=== PATIENT | male | born 1985 | race Caucasian/White ===

== ENCOUNTER 2019-12-15 14:16 | Outpatient (CLI) | payer OTHER, SELFPAY ==
--- NOTE | 2019-12-15 14:19 | DI.RAD_ITS ---
EXAM: XR KNEE RT 3V AP,LAT,BALWINDER INDICATION: RIGHT KNEE PAIN FOLLOWING INJURY. COMPARISON: No exams were available for comparison TECHNIQUE: 2D digital imaging was performed. FINDINGS: There is a small declivity of the medial femoral condyle, which could represent an osteochondral defe ct. There is mild spurring at the tibial spines and femoral intracondylar notch as well as patella. No joint effusion is visible. IMPRESSION: Question of a small osteochondral defect of the medial femoral condyle of indeterminate age. DATA REPOSITORY: RADIATION DOSE DELIVERED:
== END 2019-12-15 14:36 ==
PROVIDERS: PCP Family Medicine; Visit Provider Physician Assistant
DX: M25.561 Pain in right knee (principal)
CPT/HCPCS: 73562

== ENCOUNTER 2019-12-30 01:51 | Outpatient (CLI) | payer OTHER, SELFPAY ==
--- NOTE | 2019-12-30 08:45 | DI.MRI_ITS ---
EXAM: MR LOWER JOINT RT WO CLINICAL HISTORY: right knee pain; laxity, M25.561,swelling TECHNIQUE: Multiplanar multisequence MRI was performed. COMPARISON: 12/15/2019 FINDINGS: BONES: Hyperintense signal on the T2 weighted images in the subchondral bone of the medial femoral co ndyle. JOINTS: Hyperintense signal within the articular cartilage overlying the medial femoral condyle. Sma ll joint effusion. Tiny popliteal cyst. TENDONS: Extensor mechanism: Unremarkable. Medial retinaculum: Unremarkable. Lateral retinaculum: Unremarkable. Popliteus: Unremarkable. MUSCLES: Unremarkable. MENISCI: Degenerative signal seen in the posterior horn of the medial meniscus no tear is identified. The lateral meniscus is unremarkable. SOFT TISSUES: Unremarkable. LIGAMENTS: Anterior Cruciate: The anterior cruciate ligament appears thinned centrally suspicious for a partial tear. Posterior Cruciate: Unremarkable. Medial Collateral:Unremarkable. Lateral Collateral: Unremarkable. OTHER: IMPRESSION: 1. Findings suspicious for a partial tear of the anterior cruciate ligament. 2. Osteochondral injury involving the medial femoral condyle. 3. No evidence of a meniscal tear. DATA REPOSITORY:
== END 2019-12-30 02:11 ==
PROVIDERS: PCP Family Medicine; Visit Provider Student in an Organized Health Care Education/Training Program
DX: M25.561 Pain in right knee (principal); M23.92 Unspecified internal derangement of left knee
CPT/HCPCS: 73721

== ENCOUNTER 2020-02-09 08:30 | Outpatient (CLI) | payer OTHER, SELFPAY ==
[2020-02-09 19:27] LABS: COVID-19 RT-PCR UVMMC Result Negative (Negative)
== END 2020-02-09 08:50 ==
PROVIDERS: PCP Family Medicine; Visit Provider Student in an Organized Health Care Education/Training Program
DX: Z11.59 Encounter for screening for other viral diseases (principal); Z01.818 Encounter for other preprocedural examination
CPT/HCPCS: U0003

== ENCOUNTER 2020-02-13 10:24 | Day surgery (SDC) | payer OTHER, SELFPAY ==
[2020-02-13] VITALS (8 sets, daily range): BP systolic 110–137; BP diastolic 41–87; PULSE 80–113; RESP 14–21; TEMP 36.3–37; O2SAT 93–96
--- NOTE | 2020-02-13 10:40 | PDOC.DSDIS_ITS ---
Discharge Plan Disposition Patient Disposition: HOME Condition: Good Discharge Details Reason For Visit: RT KNEE ACL RECONSTRUCTION Attending Provider: Miguel Leung Primary Care Provider: Luis Weinberg Home Meds and New Rx's Prescriptions: New aspirin 81 mg tablet,delayed release (DR/EC) 81 mg PO BID Qty: 60 RF: 0 acetaminophen 500 mg tablet 1,000 mg PO Q8H PRN (Reason: pain) Qty: 90 RF: 3 pantoprazole 40 mg tablet,delayed release (DR/EC) 40 mg PO DAILY Qty: 30 RF: 0 ibuprofen 600 mg tablet 600 mg PO TID PRNQty: 90 RF: 3 oxycodone 5 mg tablet 5 mg PO Q4H Qty: 18 RF: 0 Continued bupropion HCl [Wellbutrin XL] 150 mg tablet extended release 24 hr 150 mg PO ONCE Qty: 30 RF: 11 buspirone 10 mg tablet 10 mg PO BID Qty: 60 RF: 11 Discharge Instructions Additional Instructions: Activity: You may bear weight as tolerated on the leg as long as the brace is on and locked and you are using crutches for support. You should keep the brace on and locked at all times until your follow-up. You should use crutches to support the knee. You may move your ankle and toes as needed. Dressing: You should keep the knee dressing in place until your follow-up appointment. If it becomes soiled or it unravels, you should call and notify the office. You may rewrap or overwrap until the follow-up. Medications: - You should take Tylenol and Ibuprofen around the clock for the first days- weeks. This will cover baseline pain control. - You have been prescribed a stronger medication if needed. If this is necessary, and you need a refill, please call the office at [phone]. - You also have Aspirin to take to prevent blood clots. - Pantoprazole is a stomach acid reducing agent to prevent reflux. Follow-up: 1 week Referrals: Miguel Leung MD [ [facility] STAFF PHYSICIAN] - [facility] [Provider Group] - 02/23/20 (s/p R ACL reconstruction with quadriceps autograft) Equipment/Supplies: Partial Weight Bearing Crutches Activity:: Elevate Remove Dressings/Wound Care:: Do Not Remove Shower/Bathe:: Cover Diet:: As Tolerated Discharge Orders Discharge Orders: Discharge Order (Routine); Ordered 02/13/20 Ordered By: Miguel Leung DS: Diagnosis Discharge Diagnosis (1) Right ACL tear: Status: Acute
--- NOTE | 2020-02-13 10:40 | HPE_ITS ---
Documented by User: Lori Butts 02/13/20 11:18 Assessment and Plan Assessment and plan (1) Right ACL tear: Status: Acute Assessment and plan: Plan: Patient was tested for COVID-19 on 02/09/2020 which came back negative. Since time of testing patient has remained in quarantine and denies symptoms of fever, chills, cough or shortness of breath. Additionally, patient denies any contact persons who are COVID 19 positive. Educated patient on surgery covering surgical technique, recovery process, benefits and risks including but not limited to risk of infection, blood clot, damage to soft tissue/blood vessels/nerves in detail. After discussion patient gives verbal understanding of risks and elects to proceed with scheduling surgery. Patient had opportunity to have questions answered to their satisfaction. They will contact office if issues arise. Patient will continue to be scheduled for right ACL reconstruction with Dr. Leung. History of Present Illness Narrative: Aftab is a 34-year-old male who presents to hospital for right ACL reconstruction with Dr. Leung later today. He has previously been seen in clinic for regarding right knee injury that happened in July 2019 while playing football. Initially, patient tried to treat his right knee with Cryocuff application, NSAIDs and PT. When he continued to have symptoms after these therapies he presented to orthopedic clinic. MRI was ordered which revealed ACL tear and osteochondral injury of the medial femoral condyle. Due to his continued instability, pain and MRI findings he was offered surgical intervention and elected to proceed. Pertinent Surgical Information Patient's Covid-19 test from 02/09/20 was negative. Denies past medical history of: Hypertension, stroke, cardiac issues, angina, asthma, COPD, sleep apnea, renal issues, liver issues, hepatitis, gastrointestinal issues, ulcers, hyperlipidemia, bleeding disorders, seizures,migraines, diabetes, autoimmune disorders, thyroid issues Denies prior complications from surgery or anesthesia. Review of Systems Constitutional Constitutional: Denies fever(s), Denies frequent falls and Denies headache(s) Eyes Eyes: Denies change in vision ENT Ears, Nose, Mouth, and Throat: Denies dizziness, Denies ear discharge, Denies headache(s), Denies epistaxis, Denies nasal discharge and Denies sore throat Cardiovascular Cardiovascular: Denies chest pain, Denies rapid heart rate, Denies irregular heart rhythm, Denies dyspnea, Denies dyspnea on exertion and Denies slow heart rate Respiratory Respiratory: Denies cough, Denies dyspnea, Denies dyspnea on exertion and Denies wheezing Gastrointestinal Gastrointestinal: Denies abdominal pain, Denies melena, Denies hematochezia, Denies constipation, Denies diarrhea, Denies nausea and Denies vomiting Genitourinary Genitourinary: Denies hematuria, Denies dysuria and Denies urinary urgency Musculoskeletal Musculoskeletal: Reports as per HPI, Denies numbness and Denies tingling Neurologic Neurologic: Denies dizziness, Denies frequent falls, Denies headache(s), Denies numbness and Denies tingling Allergic/Immunologic Allergic/Immunologic: Denies wheezing [facility] Medical History Internal derangement of right knee (Acute ~07/2019) Surgical History (Updated 02/13/20 @ 11:11 by Lori Butts) History of appendectomy (Chronic) Family History Mother Diverticulitis Heart disease Father Essential hypertension Diabetes Brother No problems noted. Brother No problems noted. Grandfather Diabetes Personal history of malignant neoplasm Prostate Grandmother Personal history of malignant neoplasm Lung Grandmother Essential hypertension Diabetes Hyperlipidemia Social History Smoking/Tobacco Use Status: Never Alcohol Intake: current Alcohol Intake frequency: a few times a week Alcohol type: hard liquor Drug use: Never Current gender identity: male Do you feel safe at home: Yes Do you feel safe in your relationship?: Yes Meds Home Medications and Allergies Home Medications Medication Instructions Recorded Confirmed Type bupropion HCl 150 mg 24 hr tablet, 150 mg PO ONCE #30 tab 12/15/19 02/13/20 Rx extended release buspirone 10 mg tablet 10 mg PO BID #60 tab 01/12/20 02/13/20 Rx acetaminophen 1,000 mg PO Q8H PRN #90 tab 02/13/20 Rx aspirin 81 mg PO BID #60 tab 02/13/20 Rx ibuprofen 600 mg PO TID PRN #90 tab 02/13/20 Rx oxycodone 5 mg PO Q4H #18 tab 02/13/20 Rx pantoprazole 40 mg PO DAILY #30 tab 02/13/20 Rx Allergies Allergy/AdvReac Type Severity Reaction Status Date / Time No Known Allergies Allergy Unverified 02/13/20 10:33 Exam Const General: cooperative and no acute distress HENMT Head: normal to inspection, normocephalic and atraumatic Ears: external ears normal General nose exam: external nose normal and no nasal discharge Face and sinus: face symmetric Eyes General: appearance normal, both eyes and all related structures Neck Lymphatic: no lymphadenopathy noted Resp Effort & Inspection: normal respiratory effort and able to speak in complete sentences Auscultation: clear to auscultation bilaterally, no rales, no rhonchi and no wheezes Cardio Heart Sounds: S1 normal, S2 normal, no murmurs, no rubs and no other Skin General skin exam: no rashes or lesions noted Documented by User: Miguel Leung MD 02/13/20 11:40 [facility] Medical History Internal derangement of right knee (Acute ~07/2019) Surgical History (Updated 02/13/20 @ 11:11 by Lori Butts) History of appendectomy (Chronic) Family History Mother Diverticulitis Heart disease Father Essential hypertension Diabetes Brother No problems noted. Brother No problems noted. Grandfather Diabetes Personal history of malignant neoplasm Prostate Grandmother Personal history of malignant neoplasm Lung Grandmother Essential hypertension Diabetes Hyperlipidemia Social History Smoking/Tobacco Use Status: Never Alcohol Intake: current Alcohol Intake frequency: a few times a week Alcohol type: hard liquor Drug use: Never Current gender identity: male Do you feel safe at home: Yes Do you feel safe in your relationship?: Yes Meds Home Medications and Allergies Home Medications Medication Instructions Recorded Confirmed Type bupropion HCl 150 mg 24 hr tablet, 150 mg PO ONCE #30 tab 12/15/19 02/13/20 Rx extended release buspirone 10 mg tablet 10 mg PO BID #60 tab 01/12/20 02/13/20 Rx acetaminophen 1,000 mg PO Q8H PRN #90 tab 02/13/20 Rx aspirin 81 mg PO BID #60 tab 05/01/20 Rx ibuprofen 600 mg PO TID PRN #90 tab 02/13/20 Rx oxycodone 5 mg PO Q4H #18 tab 02/13/20 Rx pantoprazole 40 mg PO DAILY #30 tab 02/13/20 Rx Allergies Allergy/AdvReac Type Severity Reaction Status Date / Time No Known Allergies Allergy Unverified 02/13/20 10:33
[2020-02-13] MEDS: Gabapentin 300 MG CAP PO (10:54)
[2020-02-13] MEDS: Celecoxib 200 MG CAP 400 MG PO (10:54)
[2020-02-13] MEDS: Acetaminophen 500 MG TAB 1000 MG PO (10:54)
[2020-02-13] MEDS: Lactated Ringers 1,000 ML 80 ML IV (11:06)
--- NOTE | 2020-02-13 11:45 | DI.RAD_ITS ---
EXAM: XR FLOURO OR C-ARM <1 HR INDICATION: RIGHT ACL TEAR. COMPARISON: No exams were available for comparison TECHNIQUE: 2D digital imaging was performed. FINDINGS: Fluoroscopy was provided in the OR. Please see procedure note for details. FLUORO TIME: 0.06 seconds DATA REPOSITORY: RADIATION DOSE DELIVERED:
[2020-02-13] MEDS: ceFAZolin 2 GM/50 ML BAG IVPB (11:53)
[2020-02-13] MEDS: Bupivacaine 0.25% Pres-Free 30 ML VIAL (12:33)
--- NOTE | 2020-02-13 15:08 | ROE_ITS ---
Date of service: 02/13/20 Time of Service: 15:08 Operative Note Operative Note DATE OF PROCEDURE: 02/13/20 PRE-OP DIAGNOSIS: Right ACL tear POST-OP DIAGNOSIS: same PROCEDURE: Right ACL reconstruction with quadriceps autograft SURGEON: Miguel Leung PERFORMANCE TEST ARCHITECT: Lori Butts PERFORMANCE TEST ARCHITECT: Claritza Quevedo ANESTHESIA: GETA ESTIMATED BLOOD LOSS: 20 PATHOLOGY: none sent TOURNIQUET TIME: 0 COMPLICATIONS: None Patient was transported to: PACU Patient's condition: stable Indications: I have seen Aftab in clinic for symptoms of a ACL tear. This was confirmed based on MRI and exam findings. Nonoperative measures were exhausted but disability and pain persisted. I discussed knee arthroscopy with ACL reconstruction with the patient. I discussed graft choice and he elected to proceed with an autograft. I reviewed the risks of the procedure to include, but not limited to, bleeding, infection, pain, stiffness, damage to nerves or vessels, recurrence, blood clot. Despite these risks, the patient elected to proceed. Findings: A diagnostic arthroscopy was performed with the following findings: Suprapatellar Pouch: No significant inflammation, no loose bodies Medial Compartment: No medial meniscal tear, intact meniscal root, a very focal area, approximately 5 x 5 mm of cartilage loss over the most distal aspect of the femur, no loose bodies Notch: Nearly complete ACL tear with a few posterior lateral fibers remaining, intact PCL Lateral Compartment: No meniscal tear, intact meniscal root, no significant chondromalacia or signs of arthritis, no loose bodies Patellofemoral Compartment: No significant chondromalacia, no apparent patellar maltracking Procedure Description: Aftab was greeted in the preoperative holding area where the correct side was identified and marked. The consent was reviewed with the patient and signed. The history and physical was updated. All questions were answered. He was taken back to the operating room. The patient was placed into the supine position on the operating room table. A preoperative examination was performed and this demonstrated a grossly unstable Lockman test with a notable pivot glide but not complete pivot shift. A nonsterile tourniquet was placed high onto the leg but not used. All bony prominences were well padded. Prophylactic antibiotics in the form of cefazolin were administered. The right leg was then prepped with Chloraprep and draped in a standard fashion with stockinette and extremity drape. A timeout to confirm correct identity, side and site, procedure, allergies, anesthesia, and medical concerns was performed. The leg was placed into a pneumatic leg chiu, [id number]. A standard lateral portal was made at the lateral border of the patella tendon in line with the inferior pole of the patella, soft spot. The skin and deep tissue was incised sharply and the blunt trochar was inserted atraumatically. A diagnostic arthroscopy was performed and the findings are listed above. The suprapatellar pouch had no significant inflammatory change. The patellofemoral articulation showed no articular damage as well as good tracking. The lateral gutter had no loose bodies and the medial gutter had no loose bodies. The knee was brought into some valgus stress in extension to open the medial compartment. A medial portal was made, localized by a spinal needle. The portal was created with an #11 blade through skin and capsule under direct visualization avoiding any meniscal injury. A probe was then inserted into the medial compartment. The medial compartment was fully inspected. The chondral surface of the tibia showed no significant chondromalacia and the surface of the femur showed a focal area, no more than 5 x 5 mm, of grade III/IV chondromalacia. The medial meniscus had no meniscal tear. The notch was then inspected which showed an nearly completely torn ACL and an intact PCL. The leg was then brought into a figure of 4 position. The lateral compartment was fully inspected with the arthroscope and a probe. The chondral surface of the lateral femur showed no significant chondromalacia. The chondral surface of the lateral tibia showed no significant chondromalacia. The lateral meniscus had no tear. Using a shaver as well as electrocautery I debrided the remaining attached fibers of the ACL to the femur. I performed a very small notchplasty for visualization. He did have a very narrow notch but measured nearly 28 mm proximal distal. Identified the starting point on the tibia as well as starting point the femur and this was marked with electrocautery. Attention was then turned to the graft harvest. A midline incision was made overlying the distal quadriceps tendon. This was incised down through skin and soft tissue until the quadriceps tendon was encountered. This was fully identified and the borders both medially and laterally were identified. Using a 10 mm double blade I resected a central piece of the quadriceps tendon starting proximal to distal. I then elevated the tendon off of the superior pole of patella distally and then slowly elevated the tendon off of the deeper fibers and the capsule in a distal to proximal direction. Care was taken not to enter the knee joint. I was easily able to obtain a 90 mm graft. This was transected proximally and brought over to the back table. It was then noted that there is a very small rent in the capsule. This was repaired with a 2-0 Vicryl. While the graft was being prepared on the back table my assistants reapproximated the quadriceps mechanism with a #1 Vicryl for the proximal portion making sure not to place undue tension on the fibers. The deeper tissues were closed with 2-0 Vicryl and the skin was closed with a running 4-0 Monocryl. On the back table, the graft was prepared. A #2 fiber loop stitch was placed on each of the 2 limbs of the proximal portion of the tendon. The tendon fit snugly into a 10 mm tunnel. I then placed a fiber loop with fiber tack suture over the distal aspect of the tendon incorporating the Mytec rigid loop fixation device. This was secured with a ripstop type locking mechanism with a fiber tack suture. It was tested to make sure it was secure. The graft was then placed on tension 20 pounds. It was kept moist with the vancomycin soaked gauze. The bone tunnels were then prepared. A target device was placed in the knee overlying the proposed tibial footprint. A guidewire was passed through the tibia into the footprint and this was then reamed with a 10 mm reamer. Debris was removed with a shaver. A curette was used to smooth the edges for entry into the knee. Using another targeting device I then placed this over the lateral notch and the proposed area for the footprint of the ACL making sure to stay posterior and proximal. This was held and placed in the target of ice was moved down onto the lateral femur after incising the skin and soft tissue. This showed a tunnel length of 40 mm. I then advanced the Mytec twister device into the joint and prepared a 10 mm tunnel for a length of 30 mm. This was done without difficulty. Bony debris was removed from the knee. Cannulas placed out into the tunnel and a passing suture was advanced from proximal to distal and out the tibia. The graft was then brought into the knee through the tibia. The sutures had been marked at the appropriate distance to flip the ridge of the device and this was done successfully with excellent fixation. A single x-ray image was used to confirm appropriate positioning of the rigid loop device. While holding some tension on the distal limbs I advanced the tendon into the tunnel approximately 20 mm. The knee was then cycled. Tension was held on the distal limbs. These were then secured while holding tension and placing a Mytec bio Intrafix tibial screw. The knee was once again cycled 30 times. A Lockman maneuver showed 1 to 2 mm of excursion at most with a firm endpoint. The camera was brought back into the knee and inspected and there was no PCL impingement nor notch impingement. The knee was kept in 30 degrees and any remaining slack was taken out of the rigid loop device. The graft was taut. Excess sutures were then cut. And the access sheath for the bio Intrafix device was removed. The wounds were irrigated. The tissues were then closed with a 2-0 Vicryl followed by 4-0 Monocryl. The wounds and the soft tissue surrounding them were injected with a mixture of 0.25% bupivacaine and Exparel. The wounds were dressed with Xeroform, 4 x 4's, gauze, Kerlix, and Bakari wrap. He was placed into a hinged knee brace locked in extension and was provided a Cryo/Cuff. The patient tolerated the procedure well and was returned to the Same Day Surgery area in a stable condition suffering no known complication.
[2020-02-13] MEDS: HYDROmorphone 2 MG/ML VIAL IVP ×2 (16:25→16:35)
[2020-02-13] MEDS: Normal Saline Flush 10 ML SYR IV (16:26)
[2020-02-13] MEDS: oxyCODONE 5 MG TAB PO (17:17)
--- NOTE | 2020-02-18 11:55 | PDOC.ANES ---
Date of service: 02/18/20 Time of Service: 11:55 Anesthesia Note Report Anesthesia Note: Called Aftab to discuss his postoperative nerve injury involving his right median nerve. He stated that this has completely resolved and it is back to normal. Denies ever having pain or motor dysfunction, only sensory and that is is back to baseline. I apologized for this having to happen to him and he is understanding. He was encouraged to call with any questions.
== END 2020-02-13 18:45 | disposition home or self-care (01) ==
PROVIDERS: PCP Family Medicine; Visit Provider Student in an Organized Health Care Education/Training Program
PROC: (CPT 29888; principal; 2020-02-13 12:00)
DX: S83.511A Sprain of anterior cruciate ligament of right knee, initial encounter (principal); X58.XXXA Exposure to other specified factors, initial encounter; M94.261 Chondromalacia, right knee; G89.18 Other acute postprocedural pain
CPT/HCPCS: 29888; C1713; 76000; 76942; NC; J0690; J1100; J1885; J2001; J2405; J2704; L1833; L8699

== ENCOUNTER 2020-05-21 08:22 | Outpatient (CLI) | payer OTHER, SELFPAY ==
[2020-05-23 21:04] LABS: SARS-CoV-2 RNA Undetected (Undetected); SARS-CoV-2 Specimen Source Nasopharynx
== END 2020-05-21 08:42 ==
PROVIDERS: PCP Family Medicine; Visit Provider Family Medicine
DX: Z11.59 Encounter for screening for other viral diseases (principal)
CPT/HCPCS: U0003

== ENCOUNTER 2020-06-10 02:27 | Outpatient (CLI) | payer OTHER, SELFPAY ==
--- NOTE | 2020-06-10 06:15 | DI.MRI_ITS ---
EXAM: MR LOWER JOINT RT WO CLINICAL HISTORY: Right Knee medial femur OCD,CONTINUED PAIN,CHRONDOMALACIA,M94.261. TECHNIQUE: Multiplanar multisequence MRI was performed. COMPARISON: MR MR LOWER JOINT RT WO from 12/30/2019 FINDINGS: MR examination of the knee was performed according usual protocol. Current examination is compared with prior examination of December 29. There is a new ACL reconstruction with intact reconstructed ligament. Patello femoral joint and extensor mechanism: Mild linear signal abnormality and diffuse signal abnor mality of articular cartilage near the patellar apex, little interval change from prior scan. Trochle ar articular cartilage appears intact. Medial and lateral retinacula appear intact. Mildly abnormal s ignal of quadriceps insertion consistent with tendinosis. Unremarkable appearance of patellar tendon. Normal signal in suprapatellar and infrapatellar fat pads. Lateral patellofemoral joint: Lateral meniscus shows mildly abnormal signal without a discrete tear o f the meniscus or attachments. Lateral collateral ligament and posterolateral corner structures appea r intact. Unremarkable appearance of articular cartilage. Medial patello femoral joint: Small osteochondral defect of the medial femoral condyle centrally wit h associated abnormal marrow signal and minimal cortical deformity grossly unchanged appearance from prior examination.Abnormal signal in medial meniscus consistent with medial meniscal degeneration inv olving the body and posterior horn. Possible inferior surfacing posterior horn nondisplaced tear of t he medial meniscus. Unremarkable appearance of medial collateral ligament. Cruciate ligaments: Unremarkable posterior cruciate ligament. Intact ACL reconstruction. IMPRESSION: Intact ACL reconstruction. Stable osteochondral lesion of medial femoral condyle, chondral defect and associated cortical bony d efect roughly 4 millimeters in diameter. Medial meniscal degeneration, possible posterior horn nondisplaced medial meniscal tear. Chondromalacia patellae grade 2. DATA REPOSITORY:
== END 2020-06-10 02:47 ==
PROVIDERS: PCP Family Medicine; Visit Provider Student in an Organized Health Care Education/Training Program
DX: M22.41 Chondromalacia patellae, right knee (principal); M23.303 Other meniscus derangements, unspecified medial meniscus, right knee; M21.951 Unspecified acquired deformity of right thigh; S83.511A Sprain of anterior cruciate ligament of right knee, initial encounter
CPT/HCPCS: 73721

== ENCOUNTER 2020-10-11 09:03 | Outpatient (CLI) | payer OTHER, SELFPAY ==
[2020-10-12 19:20] LABS: COVID-19 RT-PCR UVMMC Result Negative (Negative)
== END 2020-10-11 09:23 ==
PROVIDERS: PCP Family Medicine; Visit Provider Family Medicine
DX: Z20.828 Contact with and (suspected) exposure to other viral communicable diseases (principal)
CPT/HCPCS: U0003

== ENCOUNTER 2021-03-23 23:59 | Emergency (ER) | payer OTHER, SELFPAY ==
[2021-03-24 00:04] VITALS: BP 153/93; PULSE 98; RESP 18; TEMP 37; O2SAT 96
--- NOTE | 2021-03-24 00:47 | ED.GENADUL_ITS ---
Discharge Plan Disposition Patient Disposition: HOME Condition: Good Discharge Details Clinical Impression: Post-op pain, Right leg swelling Primary Care Provider: Julio César Bill ED Provider: Raza Wylie Home Meds and New Rx's Prescriptions: Continued acetaminophen 500 mg tablet 1,000 mg PO Q8H PRN (Reason: pain) Qty: 90 RF: 3 Discharge Instructions Instructions: Deep Vein Thrombosis Prevention (ED) Additional Instructions: At this time with my limited ultrasound I do not see any clear evidence of blood clot. The area of concern instead seems to show evidence of a notable muscle spasm of your fibularis brevis and tertius muscles. There is no evidence of infection at this time or new fracture. However because of your symptoms and your recent surgery there is indication for ultrasound evaluation formally to rule out DVT. As we discussed together if decided to hold off on an anticoagulant at this time. However after your DVT study tomorrow please follow -up in the ER for reassessment and further decision-making on anticoagulation, results, and pain control. Please continue to take 1000 mg of Tylenol every 6 hours and 800 mg of ibuprofen every 6 hours. Please ice the area, maintain your compression stockings. If you notice any worsening of your symptoms, or any new symptoms such as color changes in your foot, worsening pain, change in sensation, vomiting, diarrhea, fever, chills, shortness of breath, chest pain, new numbness, weakness, or fainting , please return immediately to the emergency department for reevaluation. Please follow up with your primary care provider as soon as possible for reassessment and reevaluation. As always, it was a pleasure participating in your medical care today. Referrals: Julio César Bill, MARGARINE CHURN OPERATOR [Primary Care Provider] - Medical Decision Making This is a pleasant 35-year-old male with a past medical history of previous knee injuries and surgeries with a recent right ACL repair performed in [place] 36 hours ago. He presents today for evaluation of pain just lateral to the right fibula. Patient had a notable ACL surgery in [place], after he woke up postoperatively he had notable severe pain in his knee at that time and a block was reapplied on 03/23 prior to discharge. Patient has been keeping his leg elevated and his compression stockings and bandages on and has been taking Tylenol and his oxycodones as directed however since he returned home he noticed an area of focal swelling in the right lateral distal fibular area. In spite of these medications his pain persisted. He contacted the orthopedic surgeon in [place] at around midnight who recommended that he come to the ER for assessment for potential DVT. Patient describes the pain as achy notably tender. Worse with palpation. Worse with movement. Patient has notable numbness throughout his leg secondary to the blocks that were performed while he was in [place] still. He denies any fever, chills, chest pain shortness of breath at rest, pleuritic chest pain, difficulty breathing. No other complaints at this time. No family history or personal history of DVTs. Physical exam demonstrates he postoperatively appropriately appearing right knee, no redness or warmth. Calf is nontender. No tense extremity whatsoever. Good vascular exam. Neurologic exam demonstrates notable numbness throughout which the patient states is consistent from when he was discharged secondary to the blocks. No new numbness. Good capillary refill. The right lower extremity demonstrates a focal area of mild swelling with no redness or warmth just lateral to the right distal fibula but proximal to the lateral malleolus. Bedside ultrasound albeit limited shows no evidence of large vessels or clot in the area. The muscle itself appears notably tender, the area of pain is worsened with active eversion of the foot and passive inversion of the foot which appears to be associated with use and/or stretching of the fibularis longus, fibularis tertius and fibularis brevis muscles. Suspect notable muscle strain and/or spasm secondary to procedure. No clear evidence of DVT though. Definitely no evidence of cellulitis, compartment syndrome, vascular compromise. Neurologic assessment is challenging secondary to the residual effects of the repeat blocks at the patient states he had. I had a notably long discussion with the patient and his significant other who is at bedside. We discussed lack of availability of ultrasound currently, I will set up for an outpatient ultrasound tomorrow morning. We also discussed oral and injectable anticoagulants in the interim. We had a long discussion regarding the risks and benefits, and after a notably long and thorough discussion weighing these things through shared decision-making process the patient has elected to hold off on anticoagulation at this point. He will return promptly in the morning. Recommend continued compression stockings, ice, elevation, and the patient's home oxycodones. Discussed concerning red flags for which the patient should continue to monitor for. At this time there is no evidence of compartment syndrome, cellulitis, vascular compromise, new fracture or trauma. I have extensively reviewed the treatment plan and discharge instructions with the patient and their family. I have addressed all patient concerns at this time. The patient and family was made aware of what symptoms to monitor for that would warrant a return to the emergency department. Discussed the plan with the patient and family, they demonstrate verbal understanding and agreement with our assessment and plan at this time. The documentation in this chart was dictated using [employer] dictation software. Please excuse any dictation errors. HPI General Date/Time Provider Initiated Documentation: 03/24/21 00:00 . HPI Narrative: This is a pleasant 35-year-old male with a past medical history of previous knee injuries and surgeries with a recent right ACL repair performed in [place] 36 hours ago. He presents today for evaluation of pain just lateral to the right fibula. Patient had a notable ACL surgery in [place], after he woke up postoperatively he had notable severe pain in his knee at that time and a block was reapplied on 03/23 prior to discharge. Patient has been keeping his leg elevated and his compression stockings and bandages on and has been taking Tylenol and his oxycodones as directed however since he returned home he noticed an area of focal swelling in the right lateral distal fibular area. In spite of these medications his pain persisted. He contacted the orthopedic surgeon in [place] at around midnight who recommended that he come to the ER for assessment for potential DVT. Patient describes the pain as achy notably tender. Worse with palpation. Worse with movement. Patient has notable numbness throughout his leg secondary to the blocks that were performed while he was in [place] still. He denies any fever, chills, chest pain shortness of breath at rest, pleuritic chest pain, difficulty breathing. No other complaints at this time. No family history or personal history of DVTs. Related Data Home Medications Medication Instructions Recorded Confirmed acetaminophen 1,000 mg PO Q8H PRN #90 tab 02/13/20 03/04/21 Previous Rx's Medication Instructions Recorded acetaminophen 1,000 mg PO Q8H PRN #90 tab 02/13/20 Allergies Allergy/AdvReac Type Severity Reaction Status Date / Time No Known Allergies Allergy Verified 03/04/21 14:05 General Stated Complaint: Orthopedic CLAUDIO: 3 Review of Systems All systems reviewed & are unremarkable except as noted in HPI and below PFSH Medical History Internal derangement of right knee (~07/2019) No-show for appointment Surgical History History of appendectomy Right ACL tear S/P reconstruction with quad tendon autograft: 02/13/2020 Family History Mother Diverticulitis Heart disease Father Essential hypertension Diabetes Brother No problems noted. Brother No problems noted. Grandfather Diabetes Personal history of malignant neoplasm Prostate Grandmother Personal history of malignant neoplasm Lung Grandmother Essential hypertension Diabetes Hyperlipidemia Social History Smoking/Tobacco Use Status: Never Smoking risk assessment performed?: Yes Alcohol Intake: current Alcohol Intake frequency: a few times a week Alcohol type: hard liquor Drug use: Never Current gender identity: male Do you feel safe at home: Yes Do you feel safe in your relationship?: Yes Exam Narrative Exam Narrative: 1.Const: Well-nourished, Well-developed, appearing stated age 2.Eyes: PERRL, no conjunctival injection, and symmetrical lids. 3.ENT: Atraumatic external nose and ears. Moist MM. Neck: Symmetric, trachea midline, No thyromegaly. 4.CVS: +S1/S2, No murmurs or gallops. Peripheral pulses 2+ and equal in all extremities. Brisk capillary refill in all extremities. 5.RESP: Unlabored respiratory effort. Clear to auscultation bilaterally. No wheezes rales or rhonchi 6.GI: Soft, Nontender/Nondistended, No hepatosplenomegaly. No guarding or rebound. 7.MSK: All bandaging was removed from the right knee. Postop sites look well. Minimal bleeding from one of the distal sites. This is just mild oozing. No redness, purulent discharge, or focal warmth. Swelling is mild, and appears appropriate postoperatively. No calf tenderness. The patient's right lateral calf demonstrates a small focal area of swelling that is roughly 4 cm x 3 cm. No redness or warmth. Bedside limited ultrasound shows no large vessels in that area, no evidence of clot. Pain is made worse with active eversion of the foot and passive inversion of the foot. Foot exam demonstrates dorsalis pedis and posterior tibial pulse +2 bilaterally. Brisk capillary refill in all toes. Patient is able to move and wiggle the toes and flex and extend his foot. Calf knee and thigh appear soft, compressible, not tense or hard. Sensation notably limited in the knee foot and calf secondary to block. Patient states that the areas of numbness in the foot which is notably diffuse as well as the knee is consistent to when he was discharged. No new areas of numbness. 8.Skin: Warm, Dry. No rashes or lesions. 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 10.Psych: (AAO) x3. Appropriate mood and affect Course Vital Signs Vital signs: Vital Signs Temperature 37 C 03/24/21 00:04 Pulse 98 H 03/24/21 00:04 Respiratory Rate 18 03/24/21 00:04 Blood Pressure 153/93 H 03/24/21 00:04 Pulse Oximetry 96 03/24/21 00:04 Temperature 37 C 03/24/21 00:04 Temperature Source Temporal Artery Scan 03/24/21 00:04 Pulse 98 H 03/24/21 00:04 Respiratory Rate 18 03/24/21 00:04 Respiratory Effort Non-Labored 03/24/21 00:07 Blood Pressure 153/93 H 03/24/21 00:04 Blood Pressure Position Sitting 03/24/21 00:04 Pulse Oximetry 96 03/24/21 00:04 Oxygen Delivery Method Room Air 03/24/21 00:04 Oxygen Flow Rate 0 03/24/21 00:04 Pain Level 7 03/24/21 00:08
--- NOTE | 2021-03-24 00:53 | NUR.NOTE ---
Ultras sound requisition faxed to DI to get RLE DVT study 03/24/[address] Wylie.Nursing Note:
[2021-03-24 00:57] VITALS: BP 141/75; PULSE 85; RESP 16; O2SAT 94
== END 2021-03-24 00:57 | disposition home or self-care (01) ==
PROVIDERS: Emergency Provider Student in an Organized Health Care Education/Training Program; PCP Nurse Practitioner Family
DX: M25.569 Pain in unspecified knee (principal); G89.18 Other acute postprocedural pain; R22.41 Localized swelling, mass and lump, right lower limb
CPT/HCPCS: 99282; 99283

== ENCOUNTER 2021-03-24 09:21 | Inpatient (IN) | payer OTHER, SELFPAY ==
[2021-03-24 09:32] VITALS: BP 174/103; PULSE 89; TEMP 36.7; O2SAT 94
--- NOTE | 2021-03-24 10:00 | DI.US_ITS ---
Exam(s) US LOWER EXTREMITY VENOUS RT EXAM: US LOWER EXTREMITY VENOUS RT CLINICAL HISTORY: swelling, firmness and tendernes right lateral leg. TECHNIQUE: Lower extremity venous ultrasound performed using grayscale, color-flow, and spectral Do ppler analysis. COMPARISON: No exams were available for comparison FINDINGS: The common femoral, femoral and popliteal veins demonstrate normal compressibility, augmentation, and color Doppler. The posterior tibial veins are patent. No saphenous vein thrombosis or other superfi cial venous thrombosis is seen. No hematoma or Cleveland's cyst is seen. IMPRESSION: Negative lower extremity ultrasound. No evidence of DVT. DATA REPOSITORY:
[2021-03-24] MEDS: HYDROmorphone 2 MG/ML VIAL 1 MG IM (10:21)
--- NOTE | 2021-03-24 11:07 | W.ED.GENAD ---
Discharge Plan Disposition Condition: Improving Discharge Details Chief Complaint: Orthopedic Admit Date/Time: 03/24/21 13:36 Admit Provider: Miguel Leung Attending Provider: Miguel Leung Primary Care Provider: Julio César Bill ED Provider: Na Bazan Discharge Instructions Activity:: Ambulate with crutches Equipment/Supplies:: No Equipment Needed Diet:: As Tolerated Discharge Data Discharge Date/Time-TO BE ENTERED AT DEPARTURE: 03/24/21 14:36 Medical Decision Making Ultrasound was ordered this does not show evidence of DVT, low suspicion for compartment syndrome, discussed with Dr. Leung Given patient's persistent pain I did order blood work and CPK, CPK found to be elevated greater than 5 7, will treat with continued IV analgesia and fluids Dr. Leung to evaluate the patient and to admit for pain control and IV hydration with reassessment Discussed with Kip Lim, physician tv production assistant who assisted with patient surgery in [facility], he denies any additional intervention at this time Patient agreeable to admission Mild leukocytosis noted on diagnostic labs reviewed, no obvious evidence of infectious etiology of symptoms Differential Diagnosis Differential Diagnosis: Rhabdomyolysis, DVT, superficial venous thrombosis, compartment syndrome Medical Records Medical records reviewed: Yes I reviewed the patient's medical records. Lab Data Lab results reviewed: Yes I reviewed the patient's lab results. HPI General Mode of arrival: ambulatory. Date/Time Provider Initiated Documentation: 03/24/21 09:52. Limitations to Documentation: no limitations. Information obtained by: patient. HPI Narrative: This otherwise healthy 35-year-old male presents status post ACL and meniscal repair in [place] 2 days prior to arrival with worsening pain to his right lateral calf region. He states he is also noticed some redness and swelling to the area. He attributed it to his block wearing off from surgery, however given the persistence of pain this is now his second visit should be emergency room for evaluation. Patient denies any chest pain or shortness of breath. He denies any fever or chills. He denies any pain in the actual operative site. He denies any exacerbating or alleviating factors. Describes the pain as sharp and aching Related Data Home Medications Medication Instructions Recorded Confirmed acetaminophen 1,000 mg PO Q8H PRN #90 tab 02/13/20 03/24/21 ibuprofen 800 mg PO Q8H PRN PRN 03/24/21 03/24/21 oxycodone 5 - 10 mg PO DIRECTED PRN 03/24/21 03/24/21 Previous Rx's Medication Instructions Recorded acetaminophen 1,000 mg PO Q8H PRN #90 tab 02/13/20 Allergies Allergy/AdvReac Type Severity Reaction Status Date / Time No Known Allergies Allergy Verified 03/24/21 09:36 General Stated Complaint: Orthopedic CLAUDIO: 3 Review of Systems Narrative: Review of systems obtained x7 aside from where indicated in HPI [facility] Medical History Internal derangement of right knee (~07/2019) No-show for appointment Surgical History History of appendectomy Right ACL tear S/P reconstruction with quad tendon autograft: 02/13/2020 Family History Mother Diverticulitis Heart disease Father Essential hypertension Diabetes Brother No problems noted. Brother No problems noted. Grandfather Diabetes Personal history of malignant neoplasm Prostate Grandmother Personal history of malignant neoplasm Lung Grandmother Essential hypertension Diabetes Hyperlipidemia Social History Smoking/Tobacco Use Status: Never Smoking risk assessment performed?: Yes Alcohol Intake: current Alcohol Intake frequency: a few times a week Alcohol type: hard liquor Drug use: Never Substance use type: does not use Current gender identity: male Do you feel safe at home: Yes Do you feel safe in your relationship?: Yes Exam Const General: cooperative and acute distress Resp Effort & Inspection: normal respiratory effort Cardio Rate: tachycardic Skin Other: Mild erythema to right lateral calf, distal Neuro General: patient alert Extrem Other: Neurovascularly intact, exquisite tenderness to palpation to right lateral lower extremity No proximal induration or tenderness to calf, no clear findings consistent with compartment syndrome no crepitus, low suspicion for cellulitis, no significant warmth to palpation No pallor, no coolness to extremity Course Vital Signs Vital signs: Vital Signs Temperature 36.7 C 03/24/21 09:32 Pulse 89 03/24/21 09:32 Blood Pressure 174/103 H 03/24/21 09:32 Pulse Oximetry 94 03/24/21 09:32 Temperature 36.7 C 03/24/21 09:32 Temperature Source Temporal Artery Scan 03/24/21 09:32 Pulse 89 03/24/21 09:32 Respiratory Effort Non-Labored 03/24/21 09:35 Blood Pressure 174/103 H 03/24/21 09:32 Blood Pressure Position Sitting 03/24/21 09:32 Pulse Oximetry 94 03/24/21 09:32 Oxygen Delivery Method Room Air 03/24/21 09:32 Oxygen Flow Rate 0 03/24/21 09:32 Pain Level 10 03/24/21 10:21
[2021-03-24] MEDS: Lidocaine 5% Patch 1 PATCH TP (11:13)
[2021-03-24] MEDS: Ketorolac 15 MG/ML VIAL IM (11:13)
[2021-03-24] MEDS: Cyclobenzaprine 10 MG TAB PO (11:19)
[2021-03-24] MEDS: HYDROmorphone 2 MG/ML VIAL 1 MG IVP ×3 (11:54→21:37)
[2021-03-24 11:56] LABS: Abs Immature Grans 0.08 10^3/uL (0.0-0.06); Absolute Basophil Count 0.03 10^3/uL (0.0-0.2); Absolute Eosinophil Count 0.03 10^3/uL (0.0-0.7); Absolute Monocyte Count 2.09 10^3/uL (0.1-0.8); Absolute Neutrophil Count 9.72 10^3/uL (1.2-6.7); Basophils % 0.2; Eosinophils % 0.2; HCT 44.7 % (40.0-50.0); HGB 14.9 g/dL (13.5-17.5); Immature Grans % 0.5; Lymphocytes % 18.8; MCH 30.5 pg (27.0-33.0); MCHC 33.3 % (32.0-36.0); MCV 91.4 fL (80-95); MPV 8.7 fL (8.0-11.0); Monocytes % 14.2; Neutrophils % 66.1; Nucleated RBC 0 %; Platelet Count 195 10^3/uL (130-400); RBC 4.89 10^6/uL (4.36-5.78); RDW 12.3 % (11.8-14.1); RDW-SD 41.6 fL; WBC 14.71 10^3/uL (4.4-10.8)
[2021-03-24 12:08] LABS: Absolute Lymphocyte Count 2.77 10^3/uL (1.2-3.4)
[2021-03-24 12:14] LABS: Diff Comment Diff Reviewed; RBC Morphology Normal
[2021-03-24 12:19] LABS: ALT 61 U/L (16-63); AST 158 U/L (15-37); Albumin 3.7 g/dL (3.4-5.0); Alkaline Phosphatase 47 U/L (46-116); Anion Gap 6.5 mmol/L (3-11); BUN 8 mg/dL (7-18); Bilirubin, Total 0.7 mg/dL (0.2-1.0); CO2 29.5 mmol/L (21.0-32.0); Calcium 8.2 mg/dL (8.5-10.1); Chloride 107 mmol/L (98-107); Glucose 96 mg/dL (74-106); Sodium 143 mmol/L (136-145); Total Protein 6.5 g/dL (6.4-8.2)
[2021-03-24 12:22] LABS: Creatine Kinase 5400 U/L (39-308)
[2021-03-24] MEDS: Normal Saline 1,000 ML 1000 ML IV (13:15)
[2021-03-24 13:20] VITALS: BP 118/68; PULSE 84; RESP 16; TEMP 37.2; O2SAT 95
--- NOTE | 2021-03-24 13:42 | OCONE_ITS ---
Date of service: 03/24/21 Time of Service: 13:42 History of Present Illness History of Present Illness Chief Complaint: Right Leg Pain Narrative: Ian is a 35-year-old who underwent revision ACL reconstruction of the right knee along with meniscal root repair in [place] 2 days ago. Starting last night he developed excruciating pain about the right lower leg. This pain is mostly posterior. He still reports some numbness about the right leg from multiple nerve block performed. He reports the pain is worsened with any direct pressure over the distal aspect the leg over the Achilles tendon. He denies pain within the calf. He finds it painful to dorsiflex the right foot. He does report numbness throughout the dorsum of the right foot and the leg. He has a picture which shows some redness about the medial and lateral aspects of the distal Achilles tendon. Has been wearing the brace. He has taken all the pain medications he was prescribed but continues have pain. He was seen here in the emergency department with a negative ultrasound for blood clot. CPK level was 5400. Given the severity of his pain and the increase CPK level I was consulted. I do not have any of the operative reports or details but per the there was prolonged surgical time with tourniquet of greater than 2 hours. He had significant pain after the surgery and he was given multiple nerve blocks but exact details I do not have. Consults Consult date: 03/24/21 Requesting physician: Na Bazan Consult Reason Right leg pain, rhabdomyolysis Assessment and Plan Assessment and plan (1) Post-op pain: Status: Acute (2) Rhabdomyolysis: Status: Acute Assessment and plan: Aftab is a 35-year-old status post ACL reconstruction revision with meniscal root repair 2 days ago in [place]. He is having exquisite pain today. His symptoms are obviously concerning for compartment syndrome but that is very unlikely with this type of surgery. Likewise, his clinical exam would not fit with this. His examination is somewhat difficult as he has multiple nerve blocks which I think are still confounding his exam. He does not have tense compartments and it is unlikely to have any compartment syndrome with soft compartments proximally. He hurts most at the Achilles tendon distally and its insertion to the calcaneus and slightly proximal to the musculotendinous junction which could indicate some damage to this area as it is a watershed zone. There was reported prolonged tourniquet use which could cause vascular hypoperfusion leading to the increase in creatinine kinase, pain, and muscle and tissue breakdown. He does not have any thigh pain. A salient compartment syndrome is obviously of some concern but again his symptoms do not fit with this. At this point, given his severe pain, I would like to admit him for observation. Given his increasing creatinine kinase I would hydrate him. Additionally, we may treat distally with some heat to promote tissue perfusion. We will treat the pain with narcotics as well as a benzodiazepine for muscle discomfort. We will check labs in the morning to make sure there is been no significant change and continue to follow his examination. Qualifiers: Rhabdomyolysis type: traumatic Encounter type: initial encounter Qualified Code(s): T79.6XXA - Traumatic ischemia of muscle, initial encounter Review of Systems All systems reviewed & are unremarkable except as noted in HPI and below PFSH Medical History Internal derangement of right knee (~07/2019) No-show for appointment Surgical History History of appendectomy Right ACL tear S/P reconstruction with quad tendon autograft: 02/13/2020 Family History Mother Diverticulitis Heart disease Father Essential hypertension Diabetes Brother No problems noted. Brother No problems noted. Grandfather Diabetes Personal history of malignant neoplasm Prostate Grandmother Personal history of malignant neoplasm Lung Grandmother Essential hypertension Diabetes Hyperlipidemia Social History Smoking/Tobacco Use Status: Never Smoking risk assessment performed?: Yes Alcohol Intake: current Alcohol Intake frequency: a few times a week Alcohol type: hard liquor Drug use: Never Substance use type: does not use Current gender identity: male Do you feel safe at home: Yes Do you feel safe in your relationship?: Yes Exam Narrative Exam Narrative: Laying supine in the hospital bed. Uncomfortable but no acute distress. Alert and orient x3. Evaluation the right leg shows notable swelling about the knee. Incision sites are well approximated without signs of infection. Sutures are intact. There is really minimal swelling about the proximal leg. No pain to palpation of the calf or the anterior lateral compartments of the leg proximally. These compartments are soft and compressible. Range of motion of the knee was not tested as he just had surgery and is currently in extension only. More distally the compartments are still quite soft but there is notable tenderness over the Achilles tendon from the level of the muscular tendinous junction down towards the heel. This is worsened with any stretch of the Achilles tendon, ankle dorsiflexion. However, squeezing the calf does not seem to exacerbate the pain. He has full passive range of motion of the great toe as well as the remainder of the toes. Only mild swelling distally. Palpable DP and PT pulse. Foot is warm and well-perfused. Results Last Vital Signs Temp 37.2 C 03/24/21 13:20 Pulse 84 03/24/21 13:20 Resp 16 03/24/21 13:20 BP 118/68 03/24/21 13:20 Pulse Ox 95 03/24/21 13:20 Labs Result diagrams: 03/24/21 11:45 03/24/21 11:45 Labs: Laboratory Results - last 24 hr 03/24/21 03/24/21 11:45 11:45 WBC 14.71 H RBC 4.89 Hgb 14.9 Hct 44.7 MCV 91.4 MCH 30.5 MCHC 33.3 RDW 12.3 Plt Count 195 MPV 8.7 Immature Gran % 0.5 Neutrophils % 66.1 Lymphocytes % 18.8 Monocytes % 14.2 Eosinophils % 0.2 Basophils % 0.2 Nucleated RBC % 0 Absolute Neutrophils 9.72 H Absolute Lymphocytes 2.77 Absolute Monocytes 2.09 H Absolute Eosinophils 0.03 Absolute Basophils 0.03 RBC Morphology Normal Sodium 143 Potassium 4.0 Chloride 107 Carbon Dioxide 29.5 Anion Gap 6.5 BUN 8 Creatinine 1.0 Estimated GFR/1.73 m2 >= 60.00 Glucose 96 Calcium 8.2 L Total Bilirubin 0.7 AST 158 H ALT 61 Alkaline Phosphatase 47 Creatine Kinase 5400 H Total Protein 6.5 Albumin 3.7
[2021-03-24 14:06] LABS: Source Nasal/Nares
[2021-03-24 14:22] VITALS: BP 118/68; PULSE 84; RESP 16; TEMP 37.2; O2SAT 95
[2021-03-24 14:38] VITALS: BP 141/85; PULSE 99; RESP 14; TEMP 37.3; O2SAT 97
[2021-03-24] MEDS: Acetaminophen 500 MG TAB 1000 MG PO ×2 (14:45→19:32)
[2021-03-24] MEDS: diazePAM 5 MG TAB PO ×2 (14:45→19:32)
[2021-03-24] MEDS: Normal Saline 1,000 ML 150 ML IV ×2 (14:45→21:37)
[2021-03-24 15:10] VITALS: BP 141/85; PULSE 99; RESP 14; TEMP 37.3; O2SAT 97
[2021-03-24] MEDS: oxyCODONE 5 MG TAB PO ×3 (15:44→20:55)
[2021-03-24] MEDS: Ketorolac 15 MG/ML VIAL IVP ×2 (17:41→23:51)
[2021-03-24 19:29] VITALS: BP 132/83; PULSE 107; RESP 20; TEMP 36.7; O2SAT 94
[2021-03-24] MEDS: Aspirin E.C. 81 MG TABEC PO (19:32)
[2021-03-24 20:56] LABS: COVID-19 PCR Negative (Negative)
[2021-03-25] VITALS (14 sets, daily range): BP systolic 125–159; BP diastolic 72–111; PULSE 93–128; RESP 12–20; TEMP 36–38.3; O2SAT 92–95; BMI 33.0
--- NOTE | 2021-03-25 | DI.MRI_ITS ---
Exam(s) MR LOWER JOINT RT WO EXAM: MR LOWER JOINT RT WO CLINICAL HISTORY: RLE ankle swelling and pain s/p knee surgery. TECHNIQUE: Multiplanar multisequence MRI Examination was performed. CONTRAST MATERIAL: IV Contrast: mL of Dotarem contrast administered. COMPARISON: MRI OF THE KNEE 10 JUNE 2020 FINDINGS: there is edema within the musculature, in the lateral gastroc knee medius as well as soleus. edema i s also seen in the, flexor hallucis longus and peroneus muscles. there is some mild edema seen dista lly in the tibialis anterior. the tendons appear intact. there is subcutaneous edema. the marrow s ignal is normal. there is no drainable collection. IMPRESSION: MUSCLE EDEMA AND SOFT TISSUE EDEMA. DATA REPOSITORY:
[2021-03-25] MEDS: oxyCODONE 5 MG TAB PO ×4 (03:46→21:11)
[2021-03-25] MEDS: Normal Saline 1,000 ML 150 ML IV ×4 (04:20→20:57)
[2021-03-25] MEDS: Ketorolac 15 MG/ML VIAL IVP ×4 (05:34→23:42)
--- NOTE | 2021-03-25 06:38 | DSE_ITS ---
Date of service: 03/31/21 Time of Service: 07:48 DS: Diagnosis Discharge Diagnosis (1) Compartment syndrome of right lower extremity: Status: Acute Asessment and Plan: Improving symptoms after four-compartment fasciotomies and delayed closure. (2) Post-op pain: Status: Acute Discharge Plan Disposition Patient Disposition: HOME Condition: Improving Discharge Details Reason For Visit: Right Leg Compartment Syndrome Admit Date/Time: 03/26/21 16:07 Admit Provider: Miguel Leung Attending Provider: Miguel Leung Primary Care Provider: Julio César Bill Hospital Course Hospital Course: Aftab was admitted from the emergency department to medical surgical floor for observation and pain management. He was diagnosed with acute postoperative pain along with rhabdomyolysis initially. Aggressive hydration was initiated along with adjustment to a pain regimen. His pain continued to increase with increasing swelling and tenseness of the lower leg despite having a soft proximal leg. Compartment pressures were measured on HD#2 with the lateral compartment pressure measuring 70 and the deep posterior and anterior compartment mesuring 38mmHg. At that point, the decision was made to proceed urgently with compartment releases. These were done with two incisions and left open. His pain was immediately improved. The wound were managed with typical wet-to-dry dressing technique. He returned to the operating room on POD#2 and POD#5 for serial irrigation debridement and interval closure and skin reapproximation. On POD#5 both wounds were able to be closed. His pain remained controlled on an oral regimen. He is voiding spontaneously. He was thus deemed safe for discharge to home. Home Meds and New Rx's Prescriptions: New aspirin 81 mg tablet,delayed release (DR/EC) 81 mg PO BID Qty: 30 RF: 0 docusate sodium [Colace] 100 mg capsule 100 mg PO BID PRNQty: 10 RF: 0 pantoprazole 40 mg tablet,delayed release (DR/EC) 40 mg PO DAILY Qty: 30 RF: 0 gabapentin 300 mg capsule 300 mg PO QHS Qty: 14 RF: 0 oxycodone 5 mg tablet 5 mg PO Q6H PRN PRNQty: 16 RF: 0 Continued acetaminophen 500 mg tablet 1,000 mg PO Q8H PRN (Reason: pain) Qty: 90 RF: 3 ibuprofen 800 mg Tablet 800 mg PO Q8H PRN PRNRF: 0 Discontinued oxycodone 5 mg tablet 5 - 10 mg PO DIRECTED PRNRF: 0 Discharge Instructions Additional Instructions: Activity: You may partially bear weight as tolerated on the leg as long as the knee immobilizer or brace is on and locked in extension. You should use crutches at all times for mobilizaiton. You may remove the knee immobilizer/bra ce when you're not mobilizing or moving. You may move your ankle and toes as needed. Keep the leg elevated (foot higher than knee) as much as possible. Apply ice to the leg/knee (20min on, 20min off) as a way to control swelling and pain. Dressing: You should keep the leg dressing in place for the first week. If it becomes soiled or it unravels, you may redress it with a light gauze dressing. The wounds may get wet on Sunday. It is best to avoid soaking the dressings by avoiding direct spray or covering with an occlusive type dressing or cling wrap / saran wrap. Medications: - You should take Tylenol and Ibuprofen around the clock for the first days- weeks. This will cover baseline pain control. - You have been prescribed a stronger medication if needed. - You have also been prescribed Gabapentin to take in the evenings for nerve pain and restlessness. - Continue to take Docusate and/or Miralax to promote normal bowel habits. You may also try taking a probiotic to promote more regular bowel movements. Follow-up: - [address] Leung - You should continue to have at least your first post-op visit with Dr. Pichardo Stand Alone Forms: Nursing Discharge Form Referrals: Julio César Bill, HOT ROOM ATTENDANT [Primary Care Provider] - Activity:: Ambulate with crutches Equipment/Supplies:: No Equipment Needed Diet:: As Tolerated Discharge Orders Discharge Orders: Discharge Order (Routine); Ordered 03/31/21 Ordered By: Miguel Leung DS: Summary Time Spent with Patient providing and/or coordinating discharge services: Less than 30 minutes Status at Discharge Functional status at discharge: uses cane/walker Overall status at discharge: patient is progressing back to baseline Mental Status: mental status grossly normal Speech and Movement: speech and movement normal Mood: congruent mood Affect: normal affect Exam Narrative Exam Narrative: Laying in the hospital bed. AAOx3. NAD RLE dressing c/d/i. He tolerates some passive ankle dorsiflexion/plantarflexion along with great toe extension and flexion. Improving sensation over the SP and tibial nerve distribution. No significant sensation over the DP distribution. Intact saphenous and sural nerve distribution. Palpable DP/PT pulse. Psych Mental Status: mental status grossly normal Speech and Movement: speech and movement normal Mood: congruent mood Affect: normal affect DS: Data Vitals/I&O Vitals and I&O: Vital Signs Temperature 37.2 C 03/25/21 04:19 Temperature Source Temporal Artery Scan 03/25/21 04:19 Pulse 93 H 03/25/21 04:19 Pulse Rhythm Regular 03/24/21 23:50 Respiratory Rate 20 03/25/21 04:19 Respiratory Effort Non-Labored 03/24/21 23:50 Respiratory Depth Normal 03/24/21 23:50 Respiratory Pattern Normal 03/24/21 23:50 Blood Pressure 143/83 H 03/25/21 04:19 Blood Pressure Position Sitting 03/24/21 09:32 Pulse Oximetry 93 03/25/21 04:19 Oxygen Delivery Method Room Air 03/25/21 04:19 Oxygen Flow Rate 0 03/25/21 04:19 Pain Level 6 03/25/21 04:19 Intake & Output 03/24/21 03/24/21 03/25/21 11:59 23:59 11:59 Intake Total 20 / 3380 3360 / 3380 1000 / 1000 Output Total 600 / 600 1000 / 1000 Balance 20 / 2780 2760 / 2780 0 / 0 Weight 104.326 kg Intake: IV 2029 1000 / 1000 Oral 1350 / 1350 Output: Urine 600 / 600 1000 / 1000 Other: Urine Color Yellow Yellow Urine Appearance Clear Clear Urine Odor Normal Normal Voiding Methods Urinal Urinal Data Completed and Pending Labs on day of discharge: Labs from last 24 hours 03/25/21 03/25/21 03/24/21 06:17 06:17 14:00 WBC Pending RBC Pending Hgb Pending Hct Pending MCV Pending MCH Pending MCHC Pending RDW Pending Plt Count Pending MPV Pending Immature Gran % Neutrophils % Lymphocytes % Monocytes % Eosinophils % Basophils % Nucleated RBC % Absolute Neutrophils Absolute Lymphocytes Absolute Monocytes Absolute Eosinophils Absolute Basophils RBC Morphology Sodium Pending Potassium Pending Chloride Pending Carbon Dioxide Pending Anion Gap Pending BUN Pending Creatinine Pending Estimated GFR/1.73 m2 Pending Glucose Pending Calcium Pending Total Bilirubin AST ALT Alkaline Phosphatase Creatine Kinase Pending Total Protein Albumin COVID-19 Source Nasal/nares SARS-CoV-2 (PCR) Negative 03/24/21 03/24/21 11:45 11:45 WBC 14.71 H RBC 4.89 Hgb 14.9 Hct 44.7 MCV 91.4 MCH 30.5 MCHC 33.3 RDW 12.3 Plt Count 195 MPV 8.7 Immature Gran % 0.5 Neutrophils % 66.1 Lymphocytes % 18.8 Monocytes % 14.2 Eosinophils % 0.2 Basophils % 0.2 Nucleated RBC % 0 Absolute Neutrophils 9.72 H Absolute Lymphocytes 2.77 Absolute Monocytes 2.09 H Absolute Eosinophils 0.03 Absolute Basophils 0.03 RBC Morphology Normal Sodium 143 Potassium 4.0 Chloride 107 Carbon Dioxide 29.5 Anion Gap 6.5 BUN 8 Creatinine 1.0 Estimated GFR/1.73 m2 >= 60.00 Glucose 96 Calcium 8.2 L Total Bilirubin 0.7 AST 158 H ALT 61 Alkaline Phosphatase 47 Creatine Kinase 5400 H Total Protein 6.5 Albumin 3.7 COVID-19 Source SARS-CoV-2 (PCR) [facility] Medical History Internal derangement of right knee (~07/2019) No-show for appointment Surgical History History of appendectomy Right ACL tear S/P reconstruction with quad tendon autograft: 02/13/2020 Family History Mother Diverticulitis Heart disease Father Essential hypertension Diabetes Brother No problems noted. Brother No problems noted. Grandfather Diabetes Personal history of malignant neoplasm Prostate Grandmother Personal history of malignant neoplasm Lung Grandmother Essential hypertension Diabetes Hyperlipidemia Social History Smoking/Tobacco Use Status: Never Smoking risk assessment performed?: Yes Alcohol Intake: current Alcohol Intake frequency: a few times a week Alcohol type: hard liquor Drug use: Never Substance use type: does not use Current gender identity: male Do you feel safe at home: Yes Do you feel safe in your relationship?: Yes
[2021-03-25 06:43] LABS: HCT 41.1 % (40.0-50.0); HGB 13.9 g/dL (13.5-17.5); MCH 30.5 pg (27.0-33.0); MCHC 33.8 % (32.0-36.0); MCV 90.1 fL (80-95); Platelet Count 166 10^3/uL (130-400); RBC 4.56 10^6/uL (4.36-5.78); RDW 12.4 % (11.8-14.1); RDW-SD 40.8 fL; WBC 13.34 10^3/uL (4.4-10.8)
[2021-03-25 07:05] LABS: Anion Gap 7.1 mmol/L (3-11); BUN 7 mg/dL (7-18); CO2 27.9 mmol/L (21.0-32.0); CREATININE 0.9 mg/dL (0.70-1.30); Chloride 104 mmol/L (98-107); Glucose 104 mg/dL (74-106); Potassium 3.6 mmol/L (3.5-5.1); Sodium 139 mmol/L (136-145)
[2021-03-25 07:14] LABS: Creatine Kinase 3193 U/L (39-308)
[2021-03-25] MEDS: diazePAM 5 MG TAB PO ×3 (07:34→19:16)
[2021-03-25] MEDS: Docusate Sodium 100 MG CAP PO ×2 (07:35→21:11)
[2021-03-25] MEDS: Acetaminophen 500 MG TAB 1000 MG PO ×3 (07:35→19:16)
[2021-03-25] MEDS: Aspirin E.C. 81 MG TABEC PO ×2 (07:35→19:16)
[2021-03-25] MEDS: oxyCODONE-CR 10 MG TABCR PO ×2 (09:09→20:56)
--- NOTE | 2021-03-25 09:40 | W.PM.PROGNOT ---
Date of Service Date of service: 03/25/21 Time of Service: 07:40 Assessment and Plan Assessment and plan (1) Post-op pain: Status: Acute (2) Rhabdomyolysis: Status: Acute Assessment and plan: Aftab is a 35-year-old who continues to have exquisite pain about the right lower extremity. There is notable focal swelling and tenseness in this area of the distal aspect of the leg. This would not make sense for a true compartment syndrome of the leg as the entire compartment is not tight. He is quite compressible proximally. What I cannot understand is the level of numbness he has encompassing the entirety of the foot. The foot compartment syndrome could be considered but again this would be so unusual in the setting of a knee surgery. There was reports that he had a tourniquet on for greater than 2 hours. However, I talked with the orthopedic PA today who stated that the tourniquet was released at 2 hours. His examination is obviously quite limited and at this point I do not think there is any intervention that is going to be necessary. However, to evaluate for potential injury or a drainable fluid collection about the right leg, I recommend getting an MRI. This would shed some light on the severity of his symptoms. He is having better pain control with the current regimen that were on and I think he could be able to be discharged on this regimen. He is quite anxious about going home and is adamant that he has had better pain control before going home. He is also anxious about having pain when he is at home. We will reconvene after the MRI is completed. However, I do not see any need to stay in the hospital at this point as long as we can manage the pain. Qualifiers: Rhabdomyolysis type: traumatic Encounter type: initial encounter Qualified Code(s): T79.6XXA - Traumatic ischemia of muscle, initial encounter Subjective Subjective Interval history since last seen: Aftab reports that his pain is better. However, still quite present. Has been unable to put any pressure on the back of the right distal leg. He has been able to ambulate with nursing staff and with crutches. He is unable to actively dorsiflex the foot without significant pain. He denies pain in the knee. He reports a intense cramping type sensation about the leg as well. He still has numbness about the right foot. He feels the whole foot is numb. He denies chest pain or shortness of breath. Exam Narrative Exam Narrative: Laying supine in hospital bed. No acute distress. Alert orient x3. Evaluation of the right knee shows a reason swelling. The knee is compressible as is the proximal part of the leg. No significant swelling of the anterior, lateral, posterior compartments proximally. Distally he does have more swelling than he had yesterday. The foot is held in a plantarflexed position of about 30 degrees. There is notable swelling and increased tightness seen over the posterior lateral aspect of the ankle. This area is exquisitely tender. Any palpation of the distal Achilles tendon is also exquisitely tender. If I attempt to dorsiflex his foot he has exquisite pain right at the distal aspect of the posterior lateral leg. There is some mild redness in this area which may be due to compression. There is a lidocaine patch which was peeled back for this evaluation overlying this area. He is able to actively dorsiflex and plantarflex the foot as well as extend and flex the great toe. However, he reports dense numbness over the first webspace. He has only minimal sensation over the dorsum of the foot, lateral border and medial border. Likewise only minimal sensation over the plantar aspect of the foot. Proximally, above the ankle, he endorses full sensation. Objective Last Vital Signs Temp 37.1 C 03/25/21 07:05 Pulse 105 H 03/25/21 07:05 Resp 18 03/25/21 07:05 BP 128/81 03/25/21 07:05 Pulse Ox 92 03/25/21 07:05 Laboratory Results - last 24 hr 03/24/21 03/24/21 03/24/21 11:45 11:45 14:00 WBC 14.71 H RBC 4.89 Hgb 14.9 Hct 44.7 MCV 91.4 MCH 30.5 MCHC 33.3 RDW 12.3 Plt Count 195 MPV 8.7 Immature Gran % 0.5 Neutrophils % 66.1 Lymphocytes % 18.8 Monocytes % 14.2 Eosinophils % 0.2 Basophils % 0.2 Nucleated RBC % 0 Absolute Neutrophils 9.72 H Absolute Lymphocytes 2.77 Absolute Monocytes 2.09 H Absolute Eosinophils 0.03 Absolute Basophils 0.03 RBC Morphology Normal Sodium 143 Potassium 4.0 Chloride 107 Carbon Dioxide 29.5 Anion Gap 6.5 BUN 8 Creatinine 1.0 Estimated GFR/1.73 m2 >= 60.00 Glucose 96 Calcium 8.2 L Total Bilirubin 0.7 AST 158 H ALT 61 Alkaline Phosphatase 47 Creatine Kinase 5400 H Total Protein 6.5 Albumin 3.7 COVID-19 Source Nasal/nares SARS-CoV-2 (PCR) Negative 03/25/21 03/25/21 06:17 06:17 WBC 13.34 H RBC 4.56 Hgb 13.9 Hct 41.1 MCV 90.1 MCH 30.5 MCHC 33.8 RDW 12.4 Plt Count 166 MPV 9.0 Immature Gran % Neutrophils % Lymphocytes % Monocytes % Eosinophils % Basophils % Nucleated RBC % Absolute Neutrophils Absolute Lymphocytes Absolute Monocytes Absolute Eosinophils Absolute Basophils RBC Morphology Sodium 139 Potassium 3.6 Chloride 104 Carbon Dioxide 27.9 Anion Gap 7.1 BUN 7 Creatinine 0.9 Estimated GFR/1.73 m2 >= 60.00 Glucose 104 Calcium 8.0 L Total Bilirubin AST ALT Alkaline Phosphatase Creatine Kinase 3193 H Total Protein Albumin COVID-19 Source SARS-CoV-2 (PCR)
[2021-03-25] MEDS: HYDROmorphone 2 MG/ML VIAL 1 MG IVP ×2 (10:47→13:27)
[2021-03-25] MEDS: Lidocaine 5% Patch 1 PATCH TP (11:00)
[2021-03-25] MEDS: Normal Saline Flush 10 ML SYR (12:01)
[2021-03-25] MEDS: Normal Saline Flush 10 ML SYR IVP ×2 (13:27→17:30)
--- NOTE | 2021-03-25 14:04 | INITIAL_ITS ---
- If Service Date Differs Date of service: 03/25/21 Time of Service: 14:04 Care Management Initial Assess REASON FOR HOSPITALIZATION:: Rhabdomyolsis PAST MEDICAL HISTORY/PAST SURGICAL HISTORY:: Medical History. Internal derangement of right knee (~07/2019). Surgical History. History of appendectomy. Right ACL tear. S/P reconstruction with quad tendon autograft: 02/13/2020 PREVIOUS FUNCTIONAL STATUS/SOCIAL/FAMILY SUPPORTS:: Aftab lives in [place] with his , Mariam, and their two children. 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 He is independent at baseline. CURRENT FUNCTIONAL STATUS:: Aftab was sitting up in bed when CM met with him. He reported that he was in unbearable pain at home s/p knee surgery in [place]. He stated that his pain has been controlled at [facility]. Later, he met with Dr. Emelina lerner, and was taken into surgery. His remained in the room during the surgery. CM will continue to follow. ADVANCE DIRECTIVES:: None on file. Has patient been provided with info about the portal/API?: Yes Did the patient sign up for the portal?: Yes (active) CODE STATUS:: Full Code INSURANCE COVERAGE / FINANCIAL ISSUES:: [employer] CURRENT HOME/COMMUNITY SERVICES/EQUIPMENT:: No current services. Aftab has crutches and a knee immobilizer. PRIMARY CARE PHYSICIAN:: Julio César Bill POTENTIAL DISCHARGE NEEDS:: Follow up appointments PATIENT/FAMILY EDUCATION NEEDS:: Review discharge instructions, discussion of self care needs including ask me three. ANTICIPATED BARRIERS TO DISCHARGE:: Possible open wound from surgery, potential need for wound vac. TRANSPORTATION:: Via private vehicle by his . PLAN:: Aftab went to the OR this afternoon. Anticipate he will return home once medically cleared by MD. He may require a wound vac post surgically. His will drive him home when ready via private vehicle. He will follow up with Ortho, his PCP and his discharge plan of care. CM will continue to follow.
--- NOTE | 2021-03-25 14:22 | W.ANESPRE ---
General Info Date of Service Date Performed: 03/25/21 Height: 5 ft 10 in Weight: 104.326 kg Body Mass Index (BMI): 33.0 Meds Allergies and Home Medications Allergies Allergy/AdvReac Type Severity Reaction Status Date / Time No Known Allergies Allergy Verified 03/24/21 09:36 Home Medication Medication Instructions Recorded acetaminophen 1,000 mg PO Q8H PRN #90 tab 02/13/20 ibuprofen 800 mg PO Q8H PRN PRN 03/24/21 oxycodone 5 - 10 mg PO DIRECTED PRN 03/24/21 Current Visit Medications: Current Medications Generic Name Dose Route Start Last Admin Trade Name Freq PRN Reason Stop Dose Admin Acetaminophen 1,000 mg 03/24/21 14:00 03/25/21 14:01 Acetaminophen 500 Mg Tab PO 1,000 mg TID ELKE Administration Aspirin 81 mg 03/24/21 20:00 03/25/21 07:35 Aspirin E.C. 81 Mg Tabec PO 81 mg BID ELKE Administration Diazepam 5 mg 03/24/21 14:00 03/25/21 14:00 Diazepam 5 Mg Tab PO 5 mg TID ELKE Administration Docusate Sodium 100 mg 03/24/21 13:36 03/25/21 07:35 Docusate Sodium 100 Mg Cap PO 100 mg BID PRN PRN Administration Constipation Hydromorphone HCl 1 mg 03/24/21 13:36 03/25/21 13:27 Hydromorphone 2 Mg/Ml Vial IVP 1 mg Q2H PRN PRN Administration Sodium Chloride 1,000 mls @ 150 mls/hr 03/24/21 13:45 03/25/21 10:21 Saline 1000ml Bag IV 150 mls/hr INFUSION ELKE Administration Sodium Chloride 500 mls @ 0 mls/hr 03/25/21 11:55 Saline 500ml Bag IVPB PRN PRN As Directed Sodium Chloride 50 mls @ 0 mls/hr 03/25/21 11:55 Saline 50ml Bag IVPB PRN PRN As Directed Ketorolac Tromethamine 15 mg 03/24/21 18:00 03/25/21 12:01 Ketorolac 15 Mg/Ml Vial IVP 03/29/21 17:59 15 mg Q6H ELKE Administration Lidocaine 1 patch 03/24/21 11:15 03/24/21 11:13 Lidocaine 5% Patch TP 1 patch DIRECTED ELKE Administration Ondansetron HCl 4 mg 03/24/21 13:36 Ondansetron 4 Mg/2 Ml Vial IVP Q6H PRN PRN Nausea Oxycodone HCl 10 mg 03/25/21 08:30 03/25/21 09:09 Oxycodone-Cr 10 Mg Tabcr PO 10 mg Q12H ELKE Administration Oxycodone HCl 5 - 10 mg 03/25/21 07:00 03/25/21 12:01 Oxycodone 5 Mg Tab PO 10 mg Q3H PRN PRN Administration Pain Sodium Chloride 10 ml 03/25/21 11:55 03/25/21 13:27 Normal Saline Flush 10 Ml Syr IVP 10 ml PRN PRN Administration PFSH Active Problems Active Problems: Problem Status Onset Code Rhabdomyolysis M62.82 Post-op pain G89.18 Right leg swelling M79.89 Osteochondral defect of femoral condyle M95.8 Right ACL tear S83.511A Chondromalacia, right knee M94.261 Internal derangement of right knee ~07/2019 M23.91 Anxiety and depression F41.9, F32.9 Right knee pain M25.561 Laceration T14.8 Abrasion T14.8 Medical History Medical History Internal derangement of right knee (~07/2019) No-show for appointment Surgical History Surgical History History of appendectomy Right ACL tear S/P reconstruction with quad tendon autograft: 02/13/2020 Tobacco Smoking/Tobacco Use Status: Never Alcohol Alcohol Intake: current Alcohol intake frequency: a few times a week Alcohol type: hard liquor Substance Use Substance use: Never Substance use type: does not use Vital Signs and Lab Results Vital Signs Most Recent Vital Signs in EMR: Most Recent Vital Signs Temp Pulse Resp BP Pulse Ox 37.2 C 104 H 19 133/89 93 03/25/21 12:14 03/25/21 12:13 03/25/21 12:13 03/25/21 12:13 03/25/21 12:13 Lab Results Result Diagrams: 03/25/21 06:17 03/25/21 06:17 Blood Type / Crossmatch: No Data to Display Complete Blood Count: White Blood Count 13.34 10^3/uL (4.4-10.8) H 03/25/21 06:03/25/21 Red Blood Count 4.56 10^6/uL (4.36-5.78) 03/25/21 06:03/25/21 Hemoglobin 13.9 g/dL (13.5-17.5) 03/25/21 06:03/25/21 Hematocrit 41.1 % (40.0-50.0) 03/25/21 06:03/25/21 Platelet Count 166 10^3/uL (130-400) 03/25/21 06:03/25/21 Complete Metabolic Panel: Sodium Level 139 mmol/L (136-145) 03/25/21 06:17 03/25/21 Potassium Level 3.6 mmol/L (3.5-5.1) 03/25/21 06:03/25/21 Chloride Level 104 mmol/L (98-107) 03/25/21 06:03/25/21 Carbon Dioxide Level 27.9 mmol/L (21.0-32.0) 03/25/21 06:03/25/21 Blood Urea Nitrogen 7 mg/dL (7-18) 03/25/21 06:17 03/25/21 Creatinine 0.9 mg/dL (0.70-1.30) 03/25/21 06:03/25/21 Calcium Level 8.0 mg/dL (8.5-10.1) L 03/25/21 06:03/25/21 Albumin 3.7 g/dL (3.4-5.0) 03/24/21 11:45 03/24/21 Glucose Level 104 mg/dL (74-106) 03/25/21 06:03/25/21 Liver Function Panel: Alanine Aminotransferase (ALT/SGPT) 61 U/L (16-63) 03/24/21 11:45 03/24/21 Aspartate Amino Transf (AST/SGOT) 158 U/L (15-37) H 03/24/21 11:45 03/24/21 Coagulation Panel: No Data to Display Cardiac Panel: Creatine Kinase 3193 U/L (39-308) H 03/25/21 06:17 03/25/21 Arterial Blood Gas: No Data to Display Venous Blood Gas: No Data to Display Pancreas Panel: No Data to Display Thyroid Panel: No Data to Display Infectious Disease: Coronavirus (COVID-19)(PCR) Negative (Negative) 03/24/21 14:00 03/24/21 Coronavirus 2019 Source Nasal/nares 03/24/21 14:00 03/24/21 Blood Cultures: No Data to Display Toxicology Panel: No Data to Display Anesthesia Assessment and Plan Anesthesia History Personal History: No History of Anesthesia Complications Family History: No Family History of Anesthesia Complications Exercise Tolerance Exercise Tolerance: Metabolic Equivalents>4 Pertinent Negatives Pertinent Negatives: No Symptoms of GERD Cardiac & Pulmonary Exam Cardiac Exam: Normal S1/S2 Heart Sounds Pulmonary Exam: Clear Bilateral Breath Sounds Airway Exam Known Difficult Airway: No Mallampati Class: 1 Mouth Opening: Normal (> 3cm) Thyromental Distance: Less than 3 cm Facial Hair: Full Flood Neck Range of Motion: Full ROM Neck Circumference: Normal Teeth Condition: Normal Dentition ASA Classification ASA Score: ASA 2 Emergency Case?: Yes NPO Status NPO Status: Full Stomach Anesthesia Plan Resuscitation Status: Full Code Anesthesia Technique: General Anesthesia Airway Planned: Endotracheal Tube Monitors Used: Standard Monitors
[2021-03-25] MEDS: Lactated Ringers 1,000 ML 30 ML IV (14:47)
--- NOTE | 2021-03-25 14:53 | PGE_ITS ---
Date of Service Date of service: 03/25/21 Time of Service: 14:53 Assessment and Plan Assessment and plan (1) Compartment syndrome of right lower extremity: Status: Acute Assessment and plan: Ian is a 35-year-old who underwent right knee ACL reconstruction with meniscal root surgery [address] Pichardo in [place]. He presented with increasing pain and swelling about the right leg. A portion of his pain was attributed to typical postsurgical swelling. However, it is continued to worsen. He now has an examination which is concerning for compartment syndrome. Compartment measurements obtained demonstrate high readings most of the lateral compartment but also of the 3 remaining compartments. Given these findings, I recommend that we proceed with compartment releases. What is interesting about his case is that he is quite soft and compressible proximally within the leg. This does not make much sense anatomically to me. I reviewed the case briefly with colleagues at [facility]. I also reached out to Dr. Gray and discussed the case with his PA, Scotty. The consensus from all parties was that fasciotomies was the best next step. I reviewed this with dad and given the concerns with waiting any longer, I recommend we proceed urgently with 4 compartment fasciotomies of the right leg. I discussed the procedure. I reviewed the risk of the procedure to include bleeding, infection, pain, stiffness, need for multiple repeat procedures, need for skin closure procedures with plastic surgery, damage to nerves and vessels, irreversible damage to muscles and tendons. Despite these risk, he elects to proceed. I also discussed that he would be in the hospital for some days as these wounds were left open and closed in a delayed fashion. There are no available beds at [facility] and Dr. Pichardo is unavailable to be reached and so I will assume the care here. Qualifiers: Encounter type: initial encounter Qualified Code(s): T79.A21A - Traumatic compartment syndrome of right lower extremity, initial encounter Subjective Subjective Interval history since last seen: Aftab reports worsening pain. He feels the swelling is also getting worse. He is unable to really move his foot without significant pain. I obtained an MRI this morning which showed significant swelling throughout the compartments of the leg, mostly the lateral, deep and superficial posterior compartments. He also reports continued numbness about the foot. He has no pain about the knee no pain proximal in the leg. Exam Narrative Exam Narrative: Uncomfortable but no acute distress. Alert orient x3. Evaluation of the right foot shows continued increase in swelling. There is notable swelling about the foot which is soft and compressible. The swelling over the distal leg is much more firm and seems to be more tense than it was previously. There are 3 new blisters seen erupting from the anterior medial aspect of the distal leg just proximal to the ankle joint. His foot is held in a plantarflexed position. He has exquisite pain with any attempted dorsiflexion of the ankle or inversion of the foot. Passive extension of the toes is less painful although he says is completely numb. He reports decrease sensation th roughout the whole foot with absent sensation over the superficial peroneal nerve, deep peroneal nerve and tibial nerve distribution with some decrease sensation in the sural and saphenous distributions as well. Palpable DP and PT pulse. Performed compartment syndrome measurements. His diastolic pressure at the time was 81. He measured 70 mmHg laterally, 38 mmHg anteriorly, 36 mmHg in the deep posterior compartment. Objective Last Vital Signs Temp 37.2 C 03/25/21 12:14 Pulse 104 H 03/25/21 12:13 Resp 19 03/25/21 12:13 BP 133/89 03/25/21 12:13 Pulse Ox 93 03/25/21 12:13 Laboratory Results - last 24 hr 03/24/21 03/25/21 03/25/21 14:00 06:17 06:17 WBC 13.34 H RBC 4.56 Hgb 13.9 Hct 41.1 MCV 90.1 MCH 30.5 MCHC 33.8 RDW 12.4 Plt Count 166 MPV 9.0 Sodium 139 Potassium 3.6 Chloride 104 Carbon Dioxide 27.9 Anion Gap 7.1 BUN 7 Creatinine 0.9 Estimated GFR/1.73 m2 >= 60.00 Glucose 104 Calcium 8.0 L Creatine Kinase 3193 H SARS-CoV-2 (PCR) Negative
--- NOTE | 2021-03-25 14:56 | CHAPLAIN ---
I had a brief visit with Aftab and his friend. He said he was still in quite a bit of pain. He was pleasant and engaged in a conversation. His grandmother is Rev. Blanca Funes, one of our on-call chaplains.
--- NOTE | 2021-03-25 15:09 | NUR.NOTE ---
Nursing Note: Aftab went to the OR at about 1420 this afternoon via bed. Report given to Marce. is waiting in the patients room.
[2021-03-25] MEDS: Bupivacaine 0.25% Pres-Free 30 ML VIAL (15:19)
--- NOTE | 2021-03-25 15:57 | W.PM.OP ---
Date of service: 03/25/21 Time of Service: 16:11 Operative Note Operative Note DATE OF PROCEDURE: 03/25/21 PRE-OP DIAGNOSIS: Right Leg Compartment Syndrome POST-OP DIAGNOSIS: same PROCEDURE: Right Leg Four-Compartment Fasciotomy SURGEON: Miguel Leung FUNCTIONAL CONSULTANT: Claritza Quevedo ANESTHESIA TYPE: General LMA/ETT Refer to Anesthesia Record ESTIMATED BLOOD LOSS: 10 TOURNIQUET TIME: 0 COMPLICATIONS: None Patient was transported to: PACU Patient's condition: stable Indications: Aftab is a 35 year old male who underwent an revision ACL recosntruction with meniscal root repair in [place] 3 days ago. He presented yesterday with increasing pain and swelling throughout the right lower leg. This progressed today with increasing pain with passive motion and swelling. Compartment pressures showed elevated lateral compartment pressure of 70mmHg along with 38mmHg of the anterior and deep posterior compartments. Given the clinical presentation and measured compartment pressures, I recommended proceeding with a fasciotomy of the leg. I discussed the risks of the procedure to include bleeding, infection, pain, stiffness, need for repeat procedures, damage to nerves and vessels, need for repeat procedures. Despite these risks, he elected to proceed. Findings: Significant swelling of the lateral compartment with eruption of the muscle after release from of the fascia. The anterior and deep posterior compartments seem to be slightly swollen as well. The superficial posterior compartment was considerable soft. All 4 compartments were released with a slightly limited approach. Procedure Description: Jignesh was greeted in the preoperative holding area. His identity was confirmed the correct side was identified. It was previously marked on the floor as well. The consent was obtained. He was taken to the operating room placed in supine position. The right legs placed on a bone foam ramp. A tourniquet was placed on the right leg but was not used. A general anesthetic was administered. Prophylactic antibiotics in the form of cefazolin 2 g were then given. Proposed incisions were drawn on the skin overlying the anterior border of the fibula laterally and the posterior border of the tibia medially. This incision was centered slightly more distal and not extends proximal as a complete compartment release. Starting laterally, the skin was incised sharply. The superficial peroneal nerve was identified and this was used as a guide for release. Identify the nerve and then released the fascia of the lateral compartment proximally and then moved distally. By releasing this compartment there was immediate eruption of the muscle out of its fascial constraints. This fascial release was taken down all the way to the distal aspect of the fibula where the peroneal tendons turned to tendon. It was taken up proximally to the proximal third of the leg. The superficial peroneal nerve was further released out of the anterior compartment and the intracompartments also released proximally distally. While there was some muscle to bulge of the anterior compartment it was not as severe as the lateral compartment. I then used my finger to check that we had adequate release and there is no tight areas fascial compression. Attention was then turned medially. The skin was incised sharply. This dissection was carried down and the saphenous vein was identified. There was a small sidewall injury to the saphenous vein which was cauterized and stop bleeding. Sevens vein was mobilized and the fascia of the posterior compartment was incised. This incision was made approximate 1 cm off of the posterior medial border of the tibia in essence between the deep and superficial posterior compartments. An incision was made in the deep layer of the posterior compartment and there is no muscle bulging out of this at all. The superficial posterior compartments extremely soft. My attention was then turned to the deep posterior compartment. With retraction of structures off the posterior medial tibia the border of the tibia was identified and the deep posterior compartment was incised. There was some bulging of the muscle at this point. Therefore further release was performed distally and proximally. The saphenous vein and nerve were protected in the deep posterior compartment was released all the way to the metaphyseal flare distally and proximally to the proximal one third. Once again, the pressure did not seem to be as severe as the lateral compartment but there was some eruption of the muscle when the compartment is open. There is no apparent necrotic tissue. Both wounds were then thoroughly irrigated. They were inspected for any signs of necrotic tissue there is none to be seen and therefore no debridement was performed. The skin is superficial tissues were injected with 0.25% bupivacaine. The wounds were covered with wet 4 x 4 gauze followed by dry 4 x 4's, ABD, Kerlix, and an Bakari wrap. There was minimal blood loss. He tolerated the procedure well was awake from anesthesia and taken to the PACU in stable condition.
--- NOTE | 2021-03-25 16:20 | NUR.NOTE ---
In surgery upon shift change- report received from Maryam Marie RN
[2021-03-26] VITALS (7 sets, daily range): BP systolic 113–148; BP diastolic 68–79; PULSE 78–100; RESP 16–18; TEMP 35.8–37.3; O2SAT 92–96
[2021-03-26] MEDS: oxyCODONE 5 MG TAB PO ×3 (01:54→20:36)
[2021-03-26] MEDS: Normal Saline 1,000 ML 150 ML IV ×4 (03:40→23:34)
[2021-03-26] MEDS: Ketorolac 15 MG/ML VIAL IVP ×4 (06:03→23:34)
[2021-03-26 07:16] LABS: HCT 40.7 % (40.0-50.0); HGB 13.7 g/dL (13.5-17.5); MCH 30.5 pg (27.0-33.0); MCHC 33.7 % (32.0-36.0); MCV 90.6 fL (80-95); MPV 9.3 fL (8.0-11.0); Platelet Count 191 10^3/uL (130-400); RBC 4.49 10^6/uL (4.36-5.78); RDW 11.9 % (11.8-14.1); RDW-SD 39.9 fL; WBC 13.41 10^3/uL (4.4-10.8)
[2021-03-26 07:39] LABS: Anion Gap 5.5 mmol/L (3-11); BUN 8 mg/dL (7-18); CO2 29.5 mmol/L (21.0-32.0); CREATININE 0.7 mg/dL (0.70-1.30); Calcium 8.1 mg/dL (8.5-10.1); Chloride 106 mmol/L (98-107); Creatine Kinase 1771 U/L (39-308); Glucose 120 mg/dL (74-106); Potassium 4.1 mmol/L (3.5-5.1); Sodium 141 mmol/L (136-145)
[2021-03-26] MEDS: Aspirin E.C. 81 MG TABEC PO ×2 (08:36→20:22)
[2021-03-26] MEDS: Acetaminophen 500 MG TAB 1000 MG PO ×3 (08:36→20:22)
--- NOTE | 2021-03-26 09:47 | CMPROGNOTE_ITS ---
- If Service Date Differs Date of service: 03/26/21 Time of Service: 09:47 Care Management Progress Note S/O: Aftab was sitting up in bed when CM met with him. He was open and friendly and agreeable to conversation. Aftab shared that he is feeling a lot better, like day and night, was the phrase he used. He said that yesterday his pain was beyond a 10/10. He had never experienced pain as severe as that. Today he stated that it was about a 1. He repeatedly praised Dr. Leung and stated th at he is sure he saved his leg. He also stated that he hopes Dr. Leung knows how much he appreciates him and the excellent care he has given him. Aftab did admit that he is a bit bored but informed CM that he has been playing games on his phone and that his will be bringing in hi tablet this afternoon.Aftab understands that he will need to remain hospitalized for several days as his right leg is wide open at this point. A: Jignesh is a 35 year old man admitted on 03/24/21 with right leg pain which was diagnosed as compartment syndrome requiring emergent surgical intervention. P: Anticipate Aftab will return home once medically cleared by . He may require a wound vac post surgically. His will drive him home when ready via private vehicle. He will follow up with Ortho, his PCP and his discharge plan of care. CM will continue to follow.
[2021-03-26] MEDS: Normal Saline Flush 10 ML SYR IVP (17:55)
--- NOTE | 2021-03-26 18:43 | NUR.NOTE ---
Nursing Note:Patient requested to have all 4 rails up, he stated it made him feel secure RN notified
--- NOTE | 2021-03-26 20:02 | W.PM.PROGNOT ---
Date of Service Date of service: 03/26/21 Time of Service: 08:53 Assessment and Plan Assessment and plan (1) Compartment syndrome of right lower extremity: Status: Acute Assessment and plan: Aftab is s/p fasciotomies of the right leg for compartment syndrome. This clinical picture still makes no sense. This is incredibly unusual and I have a hard time understanding the pathology. Either way, he is much better in regards to that severe pain he was having. This is proof that the compartment syndrome was real. He does have pain and that is to be expected. At this piont, I think it will be easier to take him back to the OR tomorrow for a dressing change and likely closure of the medial wound. I doubt the swelling will be reduced enough to close the lateral wound but we will assess. I will assess the compartment releases at that time. I discussed this with Aftab. He agrees. He should keep the RLE elevated at all times. He may ambulate with crutches. He may bend the knee as tolerated but no loading of the knee. NPO after midnight. Qualifiers: Encounter type: initial encounter Qualified Code(s): T79.A21A - Traumatic compartment syndrome of right lower extremity, initial encounter Subjective Subjective Interval history since last seen: Aftab reports that the severe, unrelenting pain he was experiencing is now gone. He still has pain about the posterolateral ankle but much improved. He has been keeping it elevated and utiliizing significantly less pain medications. He is passing gas and feels the need to have a BM. No CP, SOB. Exam Narrative Exam Narrative: Laying supine in the bed. RLE is elevated. Dressings c/d/i. Foot WWP with palpable DP/PT pulse. He still reports numbness about the foot but feels that there is some faint sensation plantarly and over the dorsal foot. I am able to passively move his ankle with much less pain although passive inversion does create pain. Objective Last Vital Signs Temp 37 C 03/26/21 19:35 Pulse 98 H 03/26/21 19:35 Resp 18 03/26/21 19:35 BP 125/76 03/26/21 19:35 Pulse Ox 96 03/26/21 19:35 Laboratory Results - last 24 hr 03/26/21 03/26/21 06:16 06:16 WBC 13.41 H RBC 4.49 Hgb 13.7 Hct 40.7 MCV 90.6 MCH 30.5 MCHC 33.7 RDW 11.9 Plt Count 191 MPV 9.3 Sodium 141 Potassium 4.1 Chloride 106 Carbon Dioxide 29.5 Anion Gap 5.5 BUN 8 Creatinine 0.7 Estimated GFR/1.73 m2 >= 60.00 Glucose 120 H Calcium 8.1 L Creatine Kinase 1771 H
[2021-03-27] VITALS (13 sets, daily range): BP systolic 109–161; BP diastolic 49–92; PULSE 73–99; RESP 13–20; TEMP 36.3–37.1; O2SAT 94–98; BMI 33.0
[2021-03-27] MEDS: Ketorolac 15 MG/ML VIAL IVP ×4 (05:27→23:36)
[2021-03-27] MEDS: Normal Saline 1,000 ML 150 ML IV (05:27)
--- NOTE | 2021-03-27 07:21 | W.ANESPOSTOP ---
Postoperative Evaluation Date, Time and Location Date Performed: 03/27/21 Time Performed: : Patient Location: Med/Surg Vital Signs Most Recent Imported Vital Signs: Most Recent Vital Signs Temp Pulse Resp BP Pulse Ox 37.0 C 94 H 18 161/89 H 95 03/27/21 07:10 03/27/21 07:10 03/27/21 07:10 03/27/21 07:10 03/27/21 07:10 Pain Score Most Recent Pain Score: Most Recent Pain Score Pain Level 2 03/27/21 07:10 Assessment Mental Status: Awake (Alert & Oriented to Patient Baseline) Airway and Respiratory Function: Patent airway with normal (patient baseline) respiratory exam Cardiovascular Function: Hemodynamically Stable Hydration Status: Adequately Hydrated Nausea & Vomiting: No Nausea or Vomiting Pain: Pain is tolerable/mild (<5/10) Peripheral Nerve Block: Patient did not receive a nerve block
--- NOTE | 2021-03-27 07:22 | W.ANESPRE ---
General Info Date of Service Date Performed: 03/27/21 Height: 5 ft 10 in Weight: 104.326 kg Body Mass Index (BMI): 33.0 Surgical Procedure: Operation Date: 03/25/21 14:30 Proposed Procedures Side Surgeon p RIGHT LEG FASCIOTOMY Right Miguel Leung MD Actual Procedures Side Surgeon p FOUR COMPARTMENT FASCIOTOMIES, RIGHT LEG Right Miguel Leung MD Pre-Op Diagnosis Post-Op Diagnosis RIGHT LEG PAIN COMPARTMENT SYNDROME FOUR COMPARTMENT SYNDROME Operation Date: 03/27/21 07:10 Proposed Procedures Side Surgeon p Laceration Repair Right Miguel Leung MD Actual Procedures Side Surgeon p Wound Closure/Dressing Change, Right Leg Right Miguel Leung MD Pre-Op Diagnosis Post-Op Diagnosis S/P Fasciotomies of the Right Leg for Traumatic Compartment Syndrome Meds Allergies and Home Medications Allergies Allergy/AdvReac Type Severity Reaction Status Date / Time No Known Allergies Allergy Verified 03/24/21 09:36 Home Medication Medication Instructions Recorded acetaminophen 1,000 mg PO Q8H PRN #90 tab 02/13/20 ibuprofen 800 mg PO Q8H PRN PRN 03/24/21 oxycodone 5 - 10 mg PO DIRECTED PRN 03/24/21 Current Visit Medications: Current Medications Generic Name Dose Route Start Last Admin Trade Name Freq PRN Reason Stop Dose Admin Acetaminophen 1,000 mg 03/24/21 14:00 03/26/21 20:22 Acetaminophen 500 Mg Tab PO 1,000 mg TID ELKE Administration Aspirin 81 mg 03/24/21 20:00 03/26/21 20:22 Aspirin E.C. 81 Mg Tabec PO 81 mg BID ELKE Administration Bisacodyl 5 mg 03/26/21 16:03 Bisacodyl 5 Mg Tabec PO DAILY PRN PRN Diazepam 5 mg 03/26/21 06:50 Diazepam 5 Mg Tab PO TID PRN Muscle Spasm Docusate Sodium 100 mg 03/24/21 13:36 03/25/21 21:11 Docusate Sodium 100 Mg Cap PO 100 mg BID PRN PRN Administration Constipation Hydromorphone HCl 1 mg 03/24/21 13:36 03/25/21 13:27 Hydromorphone 2 Mg/Ml Vial IVP 1 mg Q2H PRN PRN Administration Sodium Chloride 1,000 mls @ 150 mls/hr 03/24/21 13:45 03/27/21 05:27 Saline 1000ml Bag IV 150 mls/hr INFUSION ELKE Administration Sodium Chloride 500 mls @ 0 mls/hr 03/25/21 11:55 Saline 500ml Bag IVPB PRN PRN As Directed Sodium Chloride 50 mls @ 0 mls/hr 03/25/21 11:55 Saline 50ml Bag IVPB PRN PRN As Directed Ketorolac Tromethamine 15 mg 03/24/21 18:00 03/27/21 05:27 Ketorolac 15 Mg/Ml Vial IVP 03/29/21 17:59 15 mg Q6H ELKE Administration Lidocaine 1 patch 03/24/21 11:15 03/24/21 11:13 Lidocaine 5% Patch TP 1 patch DIRECTED ELKE Administration Ondansetron HCl 4 mg 03/24/21 13:36 Ondansetron 4 Mg/2 Ml Vial IVP Q6H PRN PRN Nausea Oxycodone HCl 5 - 10 mg 03/25/21 07:00 03/26/21 20:36 Oxycodone 5 Mg Tab PO 5 mg Q3H PRN PRN Administration Pain Polyethylene Glycol 17 gm 03/26/21 16:03 Polyethylene Glycol 3350 17 Gm Packet PO BID PRN PRN Sodium Chloride 10 ml 03/25/21 11:55 03/26/21 17:55 Normal Saline Flush 10 Ml Syr IVP 20 ml PRN PRN Administration PFSH Active Problems Active Problems: Problem Status Onset Code Compartment syndrome of right lower extremity T79.A21A Rhabdomyolysis M62.82 Post-op pain G89.18 Right leg swelling M79.89 Osteochondral defect of femoral condyle M95.8 Right ACL tear S83.511A Chondromalacia, right knee 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 Internal derangement of right knee ~07/2019 M23.91 Anxiety and depression F41.9, F32.9 Right knee pain M25.561 Laceration T14.8 Abrasion T14.8 Medical History Medical History Internal derangement of right knee (~07/2019) No-show for appointment Surgical History Surgical History History of appendectomy Right ACL tear S/P reconstruction with quad tendon autograft: 02/13/2020 Tobacco Smoking/Tobacco Use Status: Never Alcohol Alcohol Intake: current Alcohol intake frequency: a few times a week Alcohol type: hard liquor Substance Use Substance use: Never Substance use type: does not use Vital Signs and Lab Results Vital Signs Most Recent Vital Signs in EMR: Most Recent Vital Signs Temp Pulse Resp BP Pulse Ox 37.0 C 94 H 18 161/89 H 95 03/27/21 07:10 03/27/21 07:10 03/27/21 07:10 03/27/21 07:10 03/27/21 07:10 Lab Results Result Diagrams: 03/26/21 06:16 03/26/21 06:16 Blood Type / Crossmatch: No Data to Display Complete Blood Count: White Blood Count 13.41 10^3/uL (4.4-10.8) H 03/26/21 06:16 03/26/21 Red Blood Count 4.49 10^6/uL (4.36-5.78) 03/26/21 06:16 03/26/21 Hemoglobin 13.7 g/dL (13.5-17.5) 03/26/21 06:16 03/26/21 Hematocrit 40.7 % (40.0-50.0) 03/26/21 06:16 03/26/21 Platelet Count 191 10^3/uL (130-400) 03/26/21 06:16 03/26/21 Complete Metabolic Panel: Sodium Level 141 mmol/L (136-145) 03/26/21 06:16 03/26/21 Potassium Level 4.1 mmol/L (3.5-5.1) 03/26/21 06:16 03/26/21 Chloride Level 106 mmol/L (98-107) 03/26/21 06:16 03/26/21 Carbon Dioxide Level 29.5 mmol/L (21.0-32.0) 03/26/21 06:16 03/26/21 Blood Urea Nitrogen 8 mg/dL (7-18) 03/26/21 06:16 03/26/21 Creatinine 0.7 mg/dL (0.70-1.30) 03/26/21 06:16 03/26/21 Calcium Level 8.1 mg/dL (8.5-10.1) L 03/26/21 06:16 03/26/21 Albumin 3.7 g/dL (3.4-5.0) 03/24/21 11:45 03/24/21 Glucose Level 120 mg/dL (74-106) H 03/26/21 06:16 03/26/21 Liver Function Panel: Alanine Aminotransferase (ALT/SGPT) 61 U/L (16-63) 03/24/21 11:45 03/24/21 Aspartate Amino Transf (AST/SGOT) 158 U/L (15-37) H 03/24/21 11:45 03/24/21 Coagulation Panel: No Data to Display Cardiac Panel: Creatine Kinase 1771 U/L (39-308) H 03/26/21 06:16 03/26/21 Arterial Blood Gas: No Data to Display Venous Blood Gas: No Data to Display Pancreas Panel: No Data to Display Thyroid Panel: No Data to Display Infectious Disease: Coronavirus (COVID-19)(PCR) Negative (Negative) 03/24/21 14:00 03/24/21 Coronavirus 2019 Source Nasal/nares 03/24/21 14:00 03/24/21 Blood Cultures: No Data to Display Toxicology Panel: No Data to Display Anesthesia Assessment and Plan Anesthesia History Personal History: No History of Anesthesia Complications Family History: No Family History of Anesthesia Complications Exercise Tolerance Exercise Tolerance: Metabolic Equivalents>4 Pertinent Negatives Pertinent Negatives: No Symptoms of GERD Cardiac & Pulmonary Exam Cardiac Exam: Normal S1/S2 Heart Sounds Pulmonary Exam: Clear Bilateral Breath Sounds Airway Exam Known Difficult Airway: No Mallampati Class: 1 Mouth Opening: Normal (> 3cm) Thyromental Distance: Less than 3 cm Neck Range of Motion: Full ROM Neck Circumference: Normal Teeth Condition: Normal Dentition ASA Classification ASA Score: ASA 2 Emergency Case?: No NPO Status NPO Status: NPO Clears >2 hours, Solids >8 hours Anesthesia Plan Resuscitation Status: Full Code Anesthesia Technique: General Anesthesia Airway Planned: Natural Airway Monitors Used: Standard Monitors
[2021-03-27] MEDS: Acetaminophen 500 MG TAB 1000 MG PO ×3 (07:33→19:49)
[2021-03-27] MEDS: Lactated Ringers 1,000 ML 30 ML IV (07:54)
[2021-03-27] MEDS: ceFAZolin 2 GM/50 ML BAG 100 GM (07:54)
--- NOTE | 2021-03-27 07:56 | W.PM.PROGNOT ---
Date of Service Date of service: 03/27/21 Time of Service: 07:33 Assessment and Plan Assessment and plan (1) Compartment syndrome of right lower extremity: Status: Acute Assessment and plan: POD#2 s/p RLE fasciotomy. Doing appropriately well. The pain is to be expected. Plan to return to OR today for I&D, second look and interval closure. I will look once more at the distal-posterior aspect of the leg but I explained to Aftab that this area should be released and there is not much to release as we move more distal within the leg. I reviewed the surgery with him and he agrees to proceed. He has been NPO. Qualifiers: Encounter type: initial encounter Qualified Code(s): T79.A21A - Traumatic compartment syndrome of right lower extremity, initial encounter Subjective Subjective Interval history since last seen: Aftab continues to have some pain posteriorly. He doesn't have the level of pain that he had before. He was able to have mulitiple BM yesterday. No fever, no chills. Exam Narrative Exam Narrative: Laying supine in the bed. NAD. AAOx3. RLE Dressing c/d/i. Foot is swollen but compressible. Mild redness seen over the lateral border. Palpabel DP/PT pulse. Objective Last Vital Signs Temp 37.0 C 03/27/21 07:10 Pulse 94 H 03/27/21 07:10 Resp 18 03/27/21 07:10 BP 161/89 H 03/27/21 07:10 Pulse Ox 95 03/27/21 07:10
--- NOTE | 2021-03-27 08:20 | CMPROGNOTE_ITS ---
- If Service Date Differs Date of service: 03/27/21 Time of Service: 08:21 Care Management Progress Note S/O: Aftab was sitting up in bed when CM met with him. He was more quiet and reserved than yesterday and admitted to being upset with the course of his surgical history. He had another surgical procedure this morning and Dr. Leung was able to suture the medial wound, but the lateral compartment remains open and bandaged. He shared that he went to [place] to the Orthopedic surgeon that treats the [place] [facility] and felt he was being cared for by the best. When he developed excruciating pain post-operatively and contacted the surgeon the response was terse and unhelpful. Aftab went on to praise Dr. Leung again not only for his surgical expertise but for his compassion, caring and commitment. Aftab also acknowledged that he is frightened that the compartment syndrome with the resulting damage may have lifelong effects on his ability to walk and to play sports again. A: Jignesh is a 35 year old man admitted on 03/24/21 with right leg pain which was diagnosed as compartment syndrome requiring emergent surgical intervention. P: Anticipate Aftab will return home once medically cleared by . He may require a wound vac post surgically. His will drive him home when ready via private vehicle. He will follow up with Ortho, his PCP and his discharge plan of care. CM will continue to follow.
[2021-03-27] MEDS: Bupivacaine 0.25% Pres-Free 30 ML VIAL (08:32)
--- NOTE | 2021-03-27 08:47 | W.PM.OP ---
Operative Note Operative Note DATE OF PROCEDURE: 03/27/21 PRE-OP DIAGNOSIS: Right Leg Compartment Syndrome POST-OP DIAGNOSIS: same PROCEDURE: Right Leg Wound Irrigation and Debridement with Partial Wound Closure SURGEON: Miguel Leung [employer]IMAL [employer]EL[employer]IGATION SUPERVISOR: Andrea Beaver ANESTHESIA TYPE: General:No Airway Refer to Anesthesia Record ESTIMATED BLOOD LOSS: 5 PATHOLOGY: none sent TOURNIQUET TIME: 0 Patient was transported to: PACU Patient's condition: stable Indications: Aftab is a 35-year-old who unfortunately developed compartment syndrome of the right leg. He underwent fasciotomy on Sunday. He has had significant improvement with his symptoms. Due to his anxiety and pain complaints, he is brought back to the operating room today for dressing change, irrigation and debridement, and partial wound closure. Findings: The lateral compartment was still quite swollen and protruded. The anterior and deep posterior compartments are also somewhat above their normal fascial constraints. Once again, the superficial posterior compartment was very soft. The medial wound was able to be closed without tension. The lateral wound was reapproximated with a dermatoelastic technique with Vesseloops. Procedure Description: Aftab was greeted in the preoperative holding area. His identity was confirmed the correct side was identified. Consent was previous signed with the patient. He is brought back to the operating room placed in supine position. A general anesthetic was administered. Prophylactic in a biotics in the form of cefazolin were given. A timeout was performed for safe surgery. The dressings from the right leg were removed. There is a minimal amount of serosanguineous discharge. No signs of infection. The right leg was prepped Betadine and placed into a bone foam ramp for positioning purposes. Both wounds were inspected. The lateral wound showed protruding muscle from the lateral compartment. The anterior part was protruding above its normal fascial constraints was not as firm nor as prominent as the lateral compartment musculature. The compartments were inspected. There may be some minor constraint the very distal extent of the anterior lateral compartments. This was exposed and released with a long scissor. The same was done proximally to make sure there is no other points of compression. Superficial peroneal nerve was protected. Attention was then turned to the medial wound. Once again this was inspected directly and showed no signs of necrosis. The deep posterior compartment was protruding beyond his fascial constraints by small amount. The superficial posterior compartment was extremely soft. I had only done a limited release of the superficial posterior compartment there is no bulging muscle and there still continue to be no signs of compartment syndrome within the superficial posterior compartment. I did extend the fascial release distally approximate the deep posterior compartment given the patient's complaints but these areas felt quite soft. I did not extend the wound but was able to tunnel up a retractor and visualize the fascia. The skin was very soft in this area as was the ability to close this by hand. Therefore after irrigation I performed a direct closure using a near?far?far?near closure technique. Without any tension on the skin the wound was easily closed. Attention was then turned to the lateral wound once again. This was not going to be able to be closed directly, as expected. Therefore, I stage the closure with a dermatome elastic technique with Vesseloops. 2 Vesseloops were tied together and stable to the skin proximal to the incision. They were then crossed in a shoelace type fashion stapled on either edge of the incision approximate 1 cm off the skin edges by around 2 cm. This was alternated with tension on the Vesseloops to reapproximate some of the edges with a gap. This was done for the length of the wound and then tied at the distal end and once again stapled to the skin. Xeroform was placed over the medial wound. 2 wet 4 x 4's were placed over the lateral wound. These were both dressed with 4 x 4's and ABD followed by Kerlix. An Bakari wrap was applied from his foot to his knee. At the end the case all counts were correct. There is no significant blood loss. We will do daily wet-to-dry dressing change of the lateral wound on the floor and plan to return to the operating room on either Sunday or Sunday for reevaluation of the lateral wound with possible closure.
[2021-03-27] MEDS: oxyCODONE 5 MG TAB PO ×3 (09:30→22:16)
[2021-03-27] MEDS: ceFAZolin 1 GM/50 ML BAG IVPB ×2 (11:17→19:50)
[2021-03-27] MEDS: Normal Saline Flush 10 ML SYR IVP ×2 (11:18→17:56)
--- NOTE | 2021-03-27 17:54 | W.ANESPOSTOP ---
Postoperative Evaluation Date, Time and Location Date Performed: 03/27/21 Time Performed: 17:54 Patient Location: Med/Surg Vital Signs Most Recent Imported Vital Signs: Most Recent Vital Signs Temp Pulse Resp BP Pulse Ox 37.1 C 82 18 141/82 H 95 03/27/21 15:12 03/27/21 15:12 03/27/21 15:12 03/27/21 15:12 03/27/21 15:12 Most Recent Vital Signs Temp Pulse Resp BP Pulse Ox 37.0 C 94 H 18 161/89 H 95 03/27/21 07:10 03/27/21 07:10 03/27/21 07:10 03/27/21 07:10 03/27/21 07:10 Pain Score Most Recent Pain Score: Most Recent Pain Score Pain Level 3 03/27/21 15:12 Assessment Mental Status: Awake (Alert & Oriented to Patient Baseline) Airway and Respiratory Function: Patent airway with normal (patient baseline) respiratory exam Cardiovascular Function: Hemodynamically Stable Hydration Status: Adequately Hydrated Nausea & Vomiting: No Nausea or Vomiting Pain: Pain is tolerable/mild (<5/10) Peripheral Nerve Block: Patient did not receive a nerve block
[2021-03-27] MEDS: Normal Saline 1,000 ML 80 ML IV (19:48)
[2021-03-27] MEDS: Aspirin E.C. 81 MG TABEC PO (19:49)
[2021-03-28] VITALS (7 sets, daily range): BP systolic 126–147; BP diastolic 71–90; PULSE 65–91; RESP 18–20; TEMP 36.5–36.9; O2SAT 94–97
[2021-03-28] MEDS: oxyCODONE 5 MG TAB PO ×2 (03:30→13:45)
[2021-03-28] MEDS: ceFAZolin 1 GM/50 ML BAG IVPB ×3 (03:30→19:34)
[2021-03-28] MEDS: Ketorolac 15 MG/ML VIAL IVP ×3 (05:39→18:37)
[2021-03-28] MEDS: Normal Saline 1,000 ML 80 ML IV ×2 (05:39→18:43)
[2021-03-28 07:12] LABS: Anion Gap 9.5 mmol/L (3-11); BUN 12 mg/dL (7-18); CO2 24.5 mmol/L (21.0-32.0); CREATININE 0.7 mg/dL (0.70-1.30); Calcium 8.6 mg/dL (8.5-10.1); Chloride 108 mmol/L (98-107); Glucose 96 mg/dL (74-106); Potassium 3.6 mmol/L (3.5-5.1); Sodium 142 mmol/L (136-145)
[2021-03-28] MEDS: Acetaminophen 500 MG TAB 1000 MG PO ×3 (07:34→19:33)
[2021-03-28] MEDS: Aspirin E.C. 81 MG TABEC PO ×2 (07:35→19:33)
--- NOTE | 2021-03-28 11:05 | PHA.REVIEW ---
Pharmacy Admission Review - Admission Clinical Review (Last Reviewed 03/25/21 @ 06:38 by Miguel Leung MD) Compartment syndrome of right lower extremity (Acute) Rhabdomyolysis (Acute) Post-op pain (Acute) No Known Allergies Allergy (Verified 03/24/21 09:36) Resuscitation Status Full Code Height 5 ft 10 in Weight 104.326 kg - Renal Dosing Renal Dosing: BUN 12 mg/dL (7-18) 03/28/21 06:16 Creatinine 0.7 mg/dL (0.70-1.30) 03/28/21 06:16 Medications needing adjustments: Reviewed (Crcl ~131 mL/min using IBW (would be greater if calculated with adjbw). Current meds okay.) - Anticoagulation Anticoagulation: Hgb 13.7 g/dL (13.5-17.5) 03/26/21 06:16 Hct 40.7 % (40.0-50.0) 03/26/21 06:16 Plt Count 191 10^3/uL (130-400) 03/26/21 06:16 Creatinine 0.7 mg/dL (0.70-1.30) 03/28/21 06:16 DVT Prohphylaxis: Reviewed Medications: Aspirin Therapeutic Anticoagulation: N/A - Opiate Usage Evaluate Pain Scale/Pains Meds: Reviewed Scheduled Bowel Reg ordered if on Opiates?: No (has prn meds ordered) - Relevant Labs Sodium 142 mmol/L (136-145) 03/28/21 06:16 Potassium 3.6 mmol/L (3.5-5.1) 03/28/21 06:16 Chloride 108 mmol/L (98-107) H 03/28/21 06:16 Electrolytes, C-Reactive P, ESR: Reviewed - DM Control DM Control: Glucose 96 mg/dL (74-106) 03/28/21 06:16 Insulin Dosing: N/A - Heart Failure/CT EF%, OLAF's, B-Blockers, Diuretics: N/A - BP Control BP Control: Blood Pressure 143/71 Blood Pressure 147/87 Blood Pressure 133/79 If elevated: Reviewed (BP has been up and down so far this admission, mainly normal to high. No BP meds ordered, no mention of HTN in pt's medical history.) - Qtc Review If Elevated: N/A - IV to PO Switch IV Medications: Reviewed - Home Meds Home Med List reviewed: Reviewed Relevent Home Meds Not ordered & why?: ibuprofen (has ketorolac ordered) - Current meds Current Medication Order Review: Reviewed - Comments Comments/Follow Ups: Watch BP, labs and for med changes. Antibiotic Activity - Pharmacy Antibiotic Review Pharmacy Antibiotic Activity: Reviewed, no change (Cefazolin continues (day 2), continuing due to open wound on leg per provider.)
--- NOTE | 2021-03-28 12:19 | PDOC.CMPRO ---
- If Service Date Differs Date of service: 03/28/21 Time of Service: 12:19 Care Management Progress Note S/O: Aftab was sitting up in bed when CM met him. His , Mariam, was by his side. He reported that he is feeling much better, and his pain is being managed well. He stated that he is very happy with the care he is receiving, especially from Dr. Leung, who has been very attentive. Per report, he will have another surgery to close the open incision, possibly Sunday. CM will continue to follow. A: Aftab is a 35 year old man admitted on 03/24/21 with right leg pain which was diagnosed as compartment syndrome requiring emergent surgical intervention. P: Anticipate Aftab will return home once medically cleared by . He may require a wound vac post surgically. His will drive him home when ready via private vehicle. He will follow up with Ortho, his PCP and his discharge plan of care. CM will continue to follow.
--- NOTE | 2021-03-28 12:35 | W.PM.PROGNOT ---
Date of Service Date of service: 03/28/21 Time of Service: 12:35 Assessment and Plan Assessment and plan (1) Compartment syndrome of right lower extremity: Status: Acute Assessment and plan: Aftab is doing well from his compartment syndrome release. Yesterday I was able to close the medial incision and perform a elastic closure of the lateral side with some residual gapping. He continues to make improvements which would suggest that the compartment syndrome has been treated. It is normal to be quite sore given the trauma to the leg but I do expect this will continue to improve. I am hopeful that we will be able to close this primarily. I have encouraged him to continue to keep the leg elevated. He may mobilize with crutches to the bathroom if necessary but otherwise no significant mobilization is necessary at this time. The plan will be to return to the operating room on Sunday for repeat irrigation and debridement of the wound and attempted closure. It is possible that we will unable to close a portion of the wound and they have to return in a later date for complete closure or consider skin grafting. However, I am confident that we will be close to closing it on Sunday. Continue with daily dressing changes, wet-to-dry, of the lateral wound. N.p.o. after midnight Sunday night for return to the operating room on Sunday. Qualifiers: Encounter type: initial encounter Qualified Code(s): T79.A21A - Traumatic compartment syndrome of right lower extremity, initial encounter Subjective Subjective Interval history since last seen: Aftab reports doing well. He feels that the pain continues to improve. He has found that the foot and ankle is able to move more than it has before. The intensity of the pain that he had around the posterior ankle and heel is improving. He does have some GI upset with multiple bowel movements which she attributes to the bowel medications as well as antibiotics. No issues with the dressings. Objective Last Vital Signs Temp 36.8 C 03/28/21 10:58 Pulse 91 H 03/28/21 10:58 Resp 20 03/28/21 10:58 BP 143/71 H 03/28/21 10:58 Pulse Ox 94 03/28/21 10:58 Laboratory Results - last 24 hr 03/28/21 06:16 Sodium 142 Potassium 3.6 Chloride 108 H Carbon Dioxide 24.5 Anion Gap 9.5 BUN 12 Creatinine 0.7 Estimated GFR/1.73 m2 >= 60.00 Glucose 96 Calcium 8.6
--- NOTE | 2021-03-28 16:24 | CHAPLAIN ---
Aftab and his were talking with Samantha, from Care Management when I visited. Aftab said he's scheduled to have more surgery on Sunday and then will hopefully be discharged. He said he's been having lots of conversations with the denise upstairs, and looking for signs. Aftab's is here often to be with him. His grandmother, Rev. Rios Funes, is one of our on-call chaplains.
[2021-03-28] MEDS: Docusate Sodium 100 MG CAP PO (18:43)
[2021-03-29] VITALS (7 sets, daily range): BP systolic 123–149; BP diastolic 75–95; PULSE 70–83; RESP 17–20; TEMP 36.7–37.3; O2SAT 93–97
[2021-03-29] MEDS: Ketorolac 15 MG/ML VIAL IVP ×3 (00:16→11:33)
[2021-03-29] MEDS: Normal Saline Flush 10 ML SYR IVP ×6 (00:17→23:49)
[2021-03-29] MEDS: Ondansetron 4 MG/2 ML VIAL IVP (03:34)
[2021-03-29] MEDS: oxyCODONE 5 MG TAB PO ×8 (04:05→22:43)
[2021-03-29] MEDS: ceFAZolin 1 GM/50 ML BAG IVPB ×3 (04:06→19:15)
[2021-03-29] MEDS: Normal Saline 1,000 ML 80 ML IV (06:12)
[2021-03-29 07:04] LABS: Anion Gap 10.3 mmol/L (3-11); BUN 11 mg/dL (7-18); CO2 25.7 mmol/L (21.0-32.0); CREATININE 0.7 mg/dL (0.70-1.30); Calcium 8.4 mg/dL (8.5-10.1); Chloride 106 mmol/L (98-107); Glucose 95 mg/dL (74-106); Potassium 3.6 mmol/L (3.5-5.1); Sodium 142 mmol/L (136-145)
[2021-03-29] MEDS: Docusate Sodium 100 MG CAP PO ×2 (08:22→17:16)
[2021-03-29] MEDS: Aspirin E.C. 81 MG TABEC PO ×2 (08:22→19:18)
[2021-03-29] MEDS: Acetaminophen 500 MG TAB 1000 MG PO ×3 (08:22→19:20)
[2021-03-29] MEDS: Lactobacillus Acidophilus CAP 1 CAP PO (10:59)
[2021-03-29] MEDS: Pantoprazole 40 MG TABCR PO ×2 (11:00→19:19)
--- NOTE | 2021-03-29 11:01 | CMPROGNOTE_ITS ---
- If Service Date Differs Date of service: 03/29/21 Time of Service: 11:01 Care Management Progress Note S/O: Aftab was sitting up in bed, his leg elevated, when CM met with him. His , Mariam, was in the room visiting. Aftab reported that he was in a lot of pain for most of the day, as his dressing was changed and felt tight around his foot. Later, it was adjusted, and his pain went from a 6/7 to a 1. He expressed concern regarding his open incision, as it has not closed/improved from yester day. He is still hoping to be able to go to the OR tomorrow to close it, but he also stated that he does not want to sosa it. He is anxious to get home, as he hasn't seen his two daughters since he was admitted, except via facetime. Per MD, he continues to improve. He is scheduled for the OR tomorrow. Aftab asked about his discharge plan regarding PT recommendations. CM will discuss this with MD, as he may request that he start out patient PT after his follow up visit, post surgically. CM will continue to follow. A: Aftab is a 35 year old man admitted on 03/24/21 with right leg pain which was diagnosed as compartment syndrome requiring emergent surgical intervention. P: Anticipate Aftab will return home once medically cleared by MD. He may require a wound vac post surgically. His will drive him home when ready via private vehicle. He will follow up with Ortho, his PCP and his discharge plan of care. CM will continue to follow.
--- NOTE | 2021-03-29 11:34 | W.PM.PROGNOT ---
Date of Service Date of service: 03/29/21 Time of Service: 09:34 Assessment and Plan Assessment and plan (1) Compartment syndrome of right lower extremity: Status: Acute Assessment and plan: Aftab is a 35-year-old who is status post fasciotomy of the right lower extremity with takeback on Sunday and closure of the medial wound with a staged closure with elastic technique on the lateral wound. He continues to make improvements. His clinical examination is encouraging and without signs or symptoms of regression. I will add on a PPI for his stomach. We will discontinue fluids today. He should continue to keep the leg elevated and wrapped from foot to knee. Wet-to-dry dressing change today. N.p.o. after midnight for OR tomorrow with likely closure of the lateral wound. Continue prophylactic cefazolin. Qualifiers: Encounter type: initial encounter Qualified Code(s): T79.A21A - Traumatic compartment syndrome of right lower extremity, initial encounter Subjective Subjective Interval history since last seen: Aftab feels that things are continue to improve. He is able to move his foot more than he was before. He also feels an increasing sensation about the right foot. He has had some more GI upset with a sour feeling of his stomach. He also feels that the foot is more swollen than it has been. Exam Narrative Exam Narrative: Laying supine in the bed. Right leg is elevated. Dressings are clean dry and intact. Palpable DP pulse. Capillary refill less than 2 seconds. He is able to demonstrate active dorsiflexion and plantarflexion of the foot along with great toe extension and flexion. He does endorse improving sensation over the dorsum of the foot. He feels no significant sensation within the first webspace. He feels that the tibial nerve distribution is tingly with testing which is an improvement from previous. He also endorses improving sensation over the sural nerve and saphenous nerve distributions. There is some soft and compressible swelling of the right foot which is rewrapped with a Bakari wrap. He still has pain with maximal dorsiflexion and inversion of the foot but is able to tolerate more than he has in previous days. Objective Last Vital Signs Temp 36.9 C 03/29/21 07:10 Pulse 82 03/29/21 07:10 Resp 17 03/29/21 07:10 BP 123/75 03/29/21 07:10 Pulse Ox 93 06/15/21 07:10 Laboratory Results - last 24 hr 03/29/21 06:38 Sodium 142 Potassium 3.6 Chloride 106 Carbon Dioxide 25.7 Anion Gap 10.3 BUN 11 Creatinine 0.7 Estimated GFR/1.73 m2 >= 60.00 Glucose 95 Calcium 8.4 L
[2021-03-29] MEDS: HYDROmorphone 2 MG/ML VIAL 1 MG IVP (13:21)
--- NOTE | 2021-03-29 15:23 | NUR.NOTE ---
Nursing Note: 1415: RN in to change wound dressing per order. pt had c/o increased pain at lateral ankle. edema and red to purple discoloration noted at lateral ankle when dressing taken down, edema +2. when dressing removed, pt realizes an immediate relief of pain at ankle site. area cleansed with NS and dressing applied per order. miguel wrap to right foot with increased tension at toes with a reduction in tension as the miguel was placed further up the leg to the patella region. ecchymosis noted to posterior knee of pt's right leg. RLE elevated on multiple pillows with pt's bed being placed in position to increase the elevation of RLE. pt reports feeling very comfortable. present in room during this time. continue to monitor.
[2021-03-29] MEDS: Celecoxib 200 MG CAP PO (19:20)
[2021-03-29] MEDS: Lactated Ringers 1,000 ML 80 ML IV (23:49)
[2021-03-30] VITALS (8 sets, daily range): BP systolic 113–150; BP diastolic 74–91; PULSE 69–83; RESP 16–20; TEMP 36.1–37.7; TEMPC 36; O2SAT 93–96; BMI 33.0
[2021-03-30] MEDS: HYDROmorphone 2 MG/ML VIAL 1 MG IVP ×2 (03:20→13:39)
[2021-03-30] MEDS: Normal Saline Flush 10 ML SYR IVP (03:21)
[2021-03-30] MEDS: ceFAZolin 1 GM/50 ML BAG IVPB ×5 (03:21→23:47)
[2021-03-30] MEDS: oxyCODONE 5 MG TAB PO ×7 (06:17→23:42)
[2021-03-30 06:51] LABS: Anion Gap 5.7 mmol/L (3-11); BUN 15 mg/dL (7-18); CO2 29.3 mmol/L (21.0-32.0); CREATININE 0.8 mg/dL (0.70-1.30); Calcium 8.6 mg/dL (8.5-10.1); Chloride 106 mmol/L (98-107); Glucose 97 mg/dL (74-106); Potassium 3.8 mmol/L (3.5-5.1); Sodium 141 mmol/L (136-145)
[2021-03-30] MEDS: Celecoxib 200 MG CAP PO ×2 (07:41→19:50)
[2021-03-30] MEDS: Acetaminophen 500 MG TAB 1000 MG PO ×3 (07:41→19:50)
[2021-03-30] MEDS: Pantoprazole 40 MG TABCR PO ×2 (07:42→19:50)
--- NOTE | 2021-03-30 08:45 | PDOC.CMPRO ---
- If Service Date Differs Date of service: 03/30/21 Time of Service: 08:45 Care Management Progress Note S/O: CM met with Aftab prior to his surgery today. He expressed concerns regarding the surgery; specifically he is nervous about it not being successful, and his hospital stay being prolonged due to the open wound. Later, CM met with him, after his surgery, which went well. He was very pleased at how well the surgery went, and at the news that he will be ready for discharge tomorrow, as long as his pain is well controlled overnight. Aftab discussed his plan for outpatient PT with Dr. Leung, who stated that he will not have PT for a period of time after his discharge while he heals from compartment syndrome. Aftab reports feeling significant relief post surgically, and his happy to be returning home tomorrow. CM will continue to follow. A: Aftab is a 35 year old man admitted on 03/24/21 with right leg pain which was diagnosed as compartment syndrome requiring emergent surgical intervention. P: Anticipate Aftab will return home once medically cleared by . He may require a wound vac post surgically. His will drive him home when ready via private vehicle. He will follow up with Ortho, his PCP and his discharge plan of care. CM will continue to follow.
--- NOTE | 2021-03-30 10:24 | ANES.PREOP_ITS ---
General Info Date of Service Date Performed: 03/30/21 Height: 5 ft 10 in Weight: 104.326 kg Body Mass Index (BMI): 33.0 Surgical Procedure: Operation Date: 03/25/21 14:30 Proposed Procedures Side Surgeon p RIGHT LEG FASCIOTOMY Right Miguel Leung MD Actual Procedures Side Surgeon p FOUR COMPARTMENT FASCIOTOMIES, RIGHT LEG Right Miguel Leung MD Pre-Op Diagnosis Post-Op Diagnosis RIGHT LEG PAIN COMPARTMENT SYNDROME FOUR COMPARTMENT SYNDROME Operation Date: 03/27/21 07:10 Proposed Procedures Side Surgeon p Laceration Repair Right Miguel Leung MD Actual Procedures Side Surgeon p IRRIGATION & DEBRIDEMENT OF RIGHT LEG FASCIOTOMIES, WOUND CLOSURE Right Miguel Leung MD Pre-Op Diagnosis Post-Op Diagnosis S/P Fasciotomies of the Right Leg for Traumatic Compartment Syndrome S/P Fasciotomies of the Right Leg for Traumatic Compartment Syndrome Operation Date: 03/30/21 14:25 Proposed Procedures Side Surgeon p irrigation and debridement rt leg Right Miguel Leung MD Meds Allergies and Home Medications Allergies Allergy/AdvReac Type Severity Reaction Status Date / Time No Known Allergies Allergy Verified 03/24/21 09:36 Home Medication Medication Instructions Recorded acetaminophen 1,000 mg PO Q8H PRN #90 tab 02/13/20 ibuprofen 800 mg PO Q8H PRN PRN 03/24/21 oxycodone 5 - 10 mg PO DIRECTED PRN 03/24/21 Current Visit Medications: Current Medications Generic Name Dose Route Start Last Admin Trade Name Freq PRN Reason Stop Dose Admin Acetaminophen 1,000 mg 03/24/21 14:00 03/30/21 07:41 Acetaminophen 500 Mg Tab PO 1,000 mg TID ELKE Administration Acidophilus/Pectin 1 cap 03/29/21 10:01 03/29/21 10:59 Lactobacillus Acidophilus Cap PO 1 cap TID PRN PRN Administration Aspirin 81 mg 03/24/21 20:00 03/30/21 08:02 Aspirin E.C. 81 Mg Tabec PO Not Given BID ELKE Bisacodyl 5 mg 03/26/21 16:03 Bisacodyl 5 Mg Tabec PO DAILY PRN PRN Celecoxib 200 mg 03/29/21 20:00 03/30/21 07:41 Celecoxib 200 Mg Cap PO 200 mg BID ELKE Administration Diazepam 5 mg 03/28/21 11:25 Diazepam 5 Mg Tab PO TID PRN PRN Muscle Spasm Docusate Sodium 100 mg 03/24/21 13:36 03/29/21 17:16 Docusate Sodium 100 Mg Cap PO 100 mg BID PRN PRN Administration Constipation Hydromorphone HCl 1 mg 03/24/21 13:36 03/30/21 03:20 Hydromorphone 2 Mg/Ml Vial IVP 1 mg Q2H PRN PRN Administration Cefazolin Sodium/Dextrose 1 gm in 50 mls @ 100 mls/hr 03/27/21 12:00 03/30/21 03:21 Ancef Duplex IVPB 100 mls/hr Q8H ELKE Administration Ringer's Solution 1,000 mls @ 80 mls/hr 03/30/21 00:00 03/29/21 23:49 IV 80 mls/hr INFUSION ELKE Administration Lidocaine 1 patch 03/24/21 11:15 03/25/21 11:00 Lidocaine 5% Patch TP 1 patch DIRECTED ELKE Administration Ondansetron HCl 4 mg 03/24/21 13:36 03/29/21 03:34 Ondansetron 4 Mg/2 Ml Vial IVP 4 mg Q6H PRN PRN Administration Nausea Oxycodone HCl 5 - 10 mg 03/25/21 07:00 03/30/21 10:11 Oxycodone 5 Mg Tab PO 10 mg Q3H PRN PRN Administration Pain Pantoprazole Sodium 40 mg 03/29/21 07:30 03/30/21 07:42 Pantoprazole 40 Mg Tabcr PO 40 mg BID@0730,2000 ELKE Administration Polyethylene Glycol 17 gm 03/26/21 16:03 Polyethylene Glycol 3350 17 Gm Packet PO BID PRN PRN Sodium Chloride 10 ml 03/25/21 11:55 03/30/21 03:21 Normal Saline Flush 10 Ml Syr IVP 10 ml PRN PRN Administration PFSH Active Problems Active Problems: Problem Status Onset Code Compartment syndrome of right lower extremity T79.A21A Rhabdomyolysis M62.82 Post-op pain G89.18 Right leg swelling M79.89 Osteochondral defect of femoral condyle M95.8 Right ACL tear S83.511A Chondromalacia, right knee M94.261 Internal derangement of right knee ~07/2019 M23.91 Anxiety and depression F41.9, F32.9 Right knee pain M25.561 Laceration T14.8 Abrasion T14.8 Medical History Medical History Internal derangement of right knee (~07/2019) No-show for appointment Surgical History Surgical History History of appendectomy Right ACL tear S/P reconstruction with quad tendon autograft: 02/13/2020 Tobacco Smoking/Tobacco Use Status: Never Alcohol Alcohol Intake: current Alcohol intake frequency: a few times a week Alcohol type: hard liquor Substance Use Substance use: Never Substance use type: does not use Vital Signs and Lab Results Vital Signs Most Recent Vital Signs in EMR: Most Recent Vital Signs Temp Pulse Resp BP Pulse Ox 37.7 C H 83 16 136/81 96 03/30/21 07:08 03/30/21 07:08 03/30/21 07:08 03/30/21 07:08 03/30/21 07:08 Lab Results Result Diagrams: 03/26/21 06:16 03/30/21 06:24 Blood Type / Crossmatch: No Data to Display Complete Blood Count: White Blood Count 13.41 10^3/uL (4.4-10.8) H 03/26/21 06:16 03/26/21 Red Blood Count 4.49 10^6/uL (4.36-5.78) 03/26/21 06:16 03/26/21 Hemoglobin 13.7 g/dL (13.5-17.5) 03/26/21 06:16 03/26/21 Hematocrit 40.7 % (40.0-50.0) 03/26/21 06:16 03/26/21 Platelet Count 191 10^3/uL (130-400) 03/26/21 06:16 03/26/21 Complete Metabolic Panel: Sodium Level 141 mmol/L (136-145) 03/30/21 06:24 03/30/21 Potassium Level 3.8 mmol/L (3.5-5.1) 03/30/21 06:24 03/30/21 Chloride Level 106 mmol/L (98-107) 03/30/21 06:24 03/30/21 Carbon Dioxide Level 29.3 mmol/L (21.0-32.0) 03/30/21 06:24 03/30/21 Blood Urea Nitrogen 15 mg/dL (7-18) 03/30/21 06:24 03/30/21 Creatinine 0.8 mg/dL (0.70-1.30) 03/30/21 06:24 03/30/21 Calcium Level 8.6 mg/dL (8.5-10.1) 03/30/21 06:24 03/30/21 Albumin 3.7 g/dL (3.4-5.0) 03/24/21 11:45 03/24/21 Glucose Level 97 mg/dL (74-106) 03/30/21 06:24 03/30/21 Liver Function Panel: Alanine Aminotransferase (ALT/SGPT) 61 U/L (16-63) 03/24/21 11:45 03/24/21 Aspartate Amino Transf (AST/SGOT) 158 U/L (15-37) H 03/24/21 11:45 03/24/21 Coagulation Panel: No Data to Display Cardiac Panel: Creatine Kinase 1771 U/L (39-308) H 03/26/21 06:16 03/26/21 Arterial Blood Gas: 2 No Data to Display Venous Blood Gas: No Data to Display Pancreas Panel: No Data to Display Thyroid Panel: No Data to Display Infectious Disease: Coronavirus (COVID-19)(PCR) Negative (Negative) 03/24/21 14:00 03/24/21 Coronavirus 2019 Source Nasal/nares 03/24/21 14:00 03/24/21 Blood Cultures: No Data to Display Toxicology Panel: No Data to Display Anesthesia Assessment and Plan Anesthesia History Personal History: No History of Anesthesia Complications Family History: No Family History of Anesthesia Complications Exercise Tolerance Exercise Tolerance: Metabolic Equivalents>4 Cardiac & Pulmonary Exam Cardiac Exam: Normal S1/S2 Heart Sounds Pulmonary Exam: Clear Bilateral Breath Sounds Airway Exam Known Difficult Airway: No Mallampati Class: 1 Mouth Opening: Normal (> 3cm) Thyromental Distance: Less than 3 cm Neck Range of Motion: Full ROM Neck Circumference: Normal Teeth Condition: Normal Dentition ASA Classification ASA Score: ASA 2 Emergency Case?: No NPO Status NPO Status: NPO Clears >2 hours, Solids >8 hours Anesthesia Plan Resuscitation Status: Full Code Anesthesia Technique: General Anesthesia Airway Planned: Natural Airway Monitors Used: Standard Monitors
[2021-03-30] MEDS: Lactated Ringers 1,000 ML 80 ML IV ×2 (12:12→19:46)
[2021-03-30] MEDS: Bupivacaine 0.25% Pres-Free 30 ML VIAL (12:35)
--- NOTE | 2021-03-30 12:38 | PGE_ITS ---
Date of Service Date of service: 03/30/21 Time of Service: 10:38 Assessment and Plan Assessment and plan (1) Compartment syndrome of right lower extremity: Status: Acute Assessment and plan: Aftab is a 35-year-old who is status post fasciotomies for compartment syndrome of the right leg. He continues made good progress. None of his pain complaints are worrisome to me. He is able to tolerate passive motion and is having returning sensation. Therefore, we will continue with the plan for going to the operating today. We will do irrigation debridement of the lateral wound and likely close it. After that I will plan to watch him overnight and likely discharge to home. If he is doing very well he could go home later tonight if he desires. I reviewed the technical features of the case. I discussed the risk to include bleeding, infection, pain, stiffness, need for repeat procedures, worsening compartment pressures, blood clot. Despite these risks, he elects to proceed. Qualifiers: Encounter type: initial encounter Qualified Code(s): T79.A21A - Traumatic compartment syndrome of right lower extremity, initial encounter Subjective Subjective Interval history since last seen: Aftab has had some more pain today than usual. However, it is nothing like it was before. He does continue to feel that the foot is waking up with more sensation. The stomach aches he was having is now much better. Exam Narrative Exam Narrative: Brayden is able demonstrate active dorsiflexion and plantarflexion of the right ankle as well as extension and flexion of the great toe. Dressings clean dry and intact. He endorses much improved sensation over the dorsum of t he foot. He still denies having any sensation in the first webspace. Medial lateral borders of the foot feel relatively normal and he has some sensation although it is uncomfortable, over the plantar aspect of the foot. The foot is warm and well-perfused. Objective Last Vital Signs Temp 36.4 C 03/30/21 11:22 Pulse 75 03/30/21 11:22 Resp 16 03/30/21 11:22 BP 113/77 03/30/21 11:22 Pulse Ox 95 03/30/21 11:22 Laboratory Results - last 24 hr 03/30/21 06:24 Sodium 141 Potassium 3.8 Chloride 106 Carbon Dioxide 29.3 Anion Gap 5.7 BUN 15 Creatinine 0.8 Estimated GFR/1.73 m2 >= 60.00 Glucose 97 Calcium 8.6
--- NOTE | 2021-03-30 13:12 | W.PM.OP ---
Date of service: 03/30/21 Time of Service: 12:54 Operative Note Operative Note DATE OF PROCEDURE: 03/27/21 PRE-OP DIAGNOSIS: Right Leg Compartment Syndrome, Open Fasciotomy Wound POST-OP DIAGNOSIS: same PROCEDURE: Irrigation debridement and secondary closure of right leg lateral fasciotomy wound SURGEON: Miguel Leung ARTIST CONSULTANT: Andrea Beaver ANESTHESIA TYPE: General:No Airway Refer to Anesthesia Record ESTIMATED BLOOD LOSS: 5 PATHOLOGY: none sent TOURNIQUET TIME: 0 Patient was transported to: PACU Patient's condition: stable Indications: Aftab is a 35-year-old who developed a compartment syndrome of the right leg. He underwent a 4 compartment fasciotomy. The medial wound was closed on Sunday and the lateral wound was left open with an elastic closure technique. He has continued to have improvements with his symptoms and this point I recommended we proceed back to the operating room for irrigation debridement and likely secondary closure of the lateral wound. I reviewed the risk of the procedure to include bleeding, infection, pain, stiffness, worsening compartment pressures, blood clot, damage to nerves and vessels, need for repeat procedures. Despite these risk, he elects to proceed. Findings: The lateral and anterior compartment musculature which was visible was quite healthy-appearing. There is no signs of necrotic tissue. The skin was easily reapproximated with deep sutures and then the skin was reapproximated with nylon without tension. Procedure Description: Aftab was greeted in the preoperative holding area. His identity was confirmed the correct site was identified. The consent was reviewed the patient and signed. He was taken to the operating room placed in supine position. A bump was placed underneath the right hip to internally rotate the right leg. A general anesthetic was administered. Prophylactic antibiotics in the form of cefazolin was given. A timeout from for safe surgery. The right leg was prepped with Betadine. The previous last closure of harjit Vesseloops was removed. The wound was inspected and showed healthy appearing muscle. There is no necrotic tissue. With minimal traction on the skin I was able to manually reapproximate the skin edges. I continue with a thorough irrigation of the area. Once again there is no significant necrosis or tissue to debride. I then used a series of 0 and 2-0 Vicryl's to perform a deep dermal closure. I was able to do this with minimal tension on the wound. The very distal in the wound was the tightest once again was able to be reapproximated without much effort. The skin was then closed with 3-0 nylon in a near?far?far?near technique. The wound was dressed with a Mepilex silver dressing. All counts were correct. He was awakened from anesthesia and taken to the PACU in stable condition.
--- NOTE | 2021-03-30 13:17 | W.ANESPOSTOP ---
Postoperative Evaluation Date, Time and Location Date Performed: 03/30/21 Time Performed: 13:08 Patient Location: Med/Surg Vital Signs Most Recent Imported Vital Signs: Most Recent Vital Signs Temp Pulse Resp BP Pulse Ox 36.4 C 75 16 113/77 95 03/30/21 11:22 03/30/21 11:22 03/30/21 11:22 03/30/21 11:22 03/30/21 11:22 Most Recent Vital Signs Temp Pulse Resp BP Pulse Ox 37.1 C 82 18 141/82 H 95 03/27/21 15:12 03/27/21 15:12 03/27/21 15:12 03/27/21 15:12 03/27/21 15:12 Most Recent Vital Signs Temp Pulse Resp BP Pulse Ox 37.0 C 94 H 18 161/89 H 95 03/27/21 07:10 03/27/21 07:10 03/27/21 07:10 03/27/21 07:10 03/27/21 07:10 Most Recent Manually Entered Vital Signs: Adult Blood Pressure: 121/74 Heart Rate: 76 Respirations: 20 Oxygen Saturation (%): 95 Temperature (C): 36 C Pain Score (0-10 Scale): 3 Pain Score Most Recent Pain Score: Most Recent Pain Score Pain Level 1 03/30/21 11:22 Assessment Mental Status: Awake (Alert & Oriented to Patient Baseline) Airway and Respiratory Function: Patent airway with normal (patient baseline) respiratory exam Cardiovascular Function: Hemodynamically Stable Hydration Status: Adequately Hydrated Nausea & Vomiting: No Nausea or Vomiting Pain: Pt. Denies Any Pain Peripheral Nerve Block: Patient did not receive a nerve block
--- NOTE | 2021-03-30 13:56 | CHAPLAIN ---
I visited with Aftab shortly before he was headed to the OR for surgery on his leg. He said he has been praying and asking others to pray for him. He is hoping to be discharged by tomorrow.
[2021-03-30] MEDS: Docusate Sodium 100 MG CAP PO (14:29)
[2021-03-30] MEDS: Polyethylene Glycol 3350 17 GM PACKET PO (19:48)
[2021-03-30] MEDS: Aspirin E.C. 81 MG TABEC PO (19:49)
[2021-03-30] MEDS: Gabapentin 300 MG CAP PO (21:04)
[2021-03-30] MEDS: diazePAM 5 MG TAB PO (23:43)
[2021-03-31 03:10] VITALS: BP 112/71; PULSE 54; RESP 17; TEMP 36.1; O2SAT 93
[2021-03-31] MEDS: oxyCODONE 5 MG TAB PO ×2 (04:45→08:55)
[2021-03-31] MEDS: Pantoprazole 40 MG TABCR PO (07:06)
[2021-03-31] MEDS: ceFAZolin 1 GM/50 ML BAG IVPB (07:07)
[2021-03-31 07:15] VITALS: BP 134/66; PULSE 66; RESP 17; TEMP 36.2; O2SAT 97
--- NOTE | 2021-03-31 07:33 | PDOC.CMPRO ---
- If Service Date Differs Date of service: 03/31/21 Time of Service: 07:33 Care Management Progress Note S/O: A: Aftab is a 35 year old man admitted on 03/24/21 with right leg pain which was diagnosed as compartment syndrome requiring emergent surgical intervention. P: Anticipate Aftab will return home once medically cleared by MD. He may require a wound vac post surgically. His will drive him home when ready via private vehicle. He will follow up with Ortho, his PCP and his discharge plan of care. CM will continue to follow.
[2021-03-31] MEDS: Acetaminophen 500 MG TAB 1000 MG PO (08:53)
[2021-03-31] MEDS: Bisacodyl 5 MG TABEC PO (08:54)
[2021-03-31] MEDS: Aspirin E.C. 81 MG TABEC PO (08:54)
[2021-03-31] MEDS: Docusate Sodium 100 MG CAP PO (08:54)
[2021-03-31] MEDS: Lactobacillus Acidophilus CAP 1 CAP PO (08:55)
[2021-03-31] MEDS: Celecoxib 200 MG CAP PO (08:55)
--- NOTE | 2021-03-31 12:01 | PDOC.CMDIS ---
- If Service Date Differs Date of service: 03/31/21 Time of Service: 12:01 LACE Index Scoring Tool - Questions: Length of Stay (in days): 4 - 6 Acuity (Admit via E.D.?): Yes E.D. Visits: 2 - Answers: Total Score: 9 Risk of Readmission: Low Risk Care Management Discharge Reason for Hospitalization: Rhabdomyolsis Discharge Plan: Aftab will return home with no new services, however he does have a new brace and crutches. His will drive him home via private vehicle and he will follow up with Ortho, his PCP and his discharge plan of care. . Patient/Family Education Needs: Review discharge instructions, discussion of self care needs including ask me three.
== END 2021-03-31 10:42 | disposition home or self-care (01) | DRG 983 ==
LOC: ER 09:31 → MS 14:37 → ER 03-31 14:12 → MS 03-31 14:17
PROVIDERS: Admitting Provider Student in an Organized Health Care Education/Training Program; Emergency Provider Physician Assistant; PCP Nurse Practitioner Family; Visit Provider Student in an Organized Health Care Education/Training Program
PROC: 0KNS0ZZ Release Right Lower Leg Muscle, Open Approach (ICD-10-PCS; CPT 27602; principal; 2021-03-25 14:30)
PROC: 0JQN0ZZ Repair Right Lower Leg Subcutaneous Tissue and Fascia, Open Approach (ICD-10-PCS; CPT 13160; principal; 2021-03-27 07:10)
DX: T79.A21A Traumatic compartment syndrome of right lower extremity, initial encounter (principal); T79.6XXA Traumatic ischemia of muscle, initial encounter; Y83.8 Other surgical procedures as the cause of abnormal reaction of the patient, or of later complication, without mention of misadventure at the time of the procedure; G89.18 Other acute postprocedural pain; Y92.234 Operating room of hospital as the place of occurrence of the external cause; Z20.822 Contact with and (suspected) exposure to COVID-19
CPT/HCPCS: 27602; 13160 ×2; 36415; 73721; 80048; 80053; 82550; 85027; 87635; 96361; 96372; 96374; 96375; 99285; 85025; 93971; 99284; J0690; J1100; J1885; J2001; J2250; J2405; J2704

== ENCOUNTER → 2021-11-28 00:19 | Outpatient (CLI) | payer BC, SELFPAY ==
--- NOTE | 2021-11-28 | DI.MRI_ITS ---
Exam(s) MR LOWER JOINT RT WO EXAM: MR LOWER JOINT RT WO CLINICAL HISTORY: SPRAIN ANT CRUCIATA LIGAMENT,S83.511D,S/P ACL RECONSTRUCTION, ? ACL TEAR TECHNIQUE: Multiplanar multisequence MRI of the knee was performed. COMPARISON: MR MR LOWER JOINT RT WO from 12/30/2019 MR MR LOWER JOINT RT WO from 06/10/2020 FINDINGS: EFFUSION: There is a small amount of increased joint fluid. There is no [place] cyst in the popliteal fossa. MARROW:No evidence of fracture or bone contusion. No significant osseous lesions. There are no sign ificant osseous lesions. PATELLOFEMORAL COMPARTMENT: The quadriceps tendon is intact. The patellar ligament is intact. The appearance of the retropatellar cartilage is unchanged. There is a thin mid level fissure which extends through 2/3 of the thickness of the retropatellar cartilage but does not reach the posterior patellar surface and is not associated with prominent thinning of the retropatellar cartilage. No ab normal intraosseous signal in the patella.There is no intraosseous signal to suggest recent patellar dislocation. There are no patellar retinacular tears. CRUCIATE LIGAMENTS: The ACL graft is intact.The posterior cruciate ligament is intact. MEDIAL COMPARTMENT/MEDIAL MENISCUS: There are no tears of the medial meniscus evident.. The previously described small osteochondral defect over the main weight-bearing surfaces again noted . It does not appear unstable. There is a lesser amount of underlying bone edema in the condyle at this time. Approximately 1 centimeter posterior to this is another similar finding which was not pre viously present and has appearance of another developing osteochondral defect.Immediately posterior t o this are few tiny degenerative subarticular cysts in the subarticular medial femoral condyle. MEDIAL COLLATERAL LIGAMENT: Intact LATERAL COMPARTMENT/LATERAL MENISCUS: There is no evidence of lateral meniscal tear.There are no rob dral defects, osteochondral defects, subarticular marrow edema, nor osteophytes evident. ILIOTIBIAL BAND: Intact LATERAL COLLATERAL LIGAMENT COMPLEX: The fibular collateral ligament is intact. The biceps femoris t endon is intact.Popliteus muscle and tendon are intact. IMPRESSION: 1. Compared to the prior MRI scan of May 2020 there is again noted an intact ACL graft. PCL remai ns intact 2. No new meniscal tears evident. There is a new osteochondral defect in the medial femoral condyle developing approximately 1 cm posterior to the site of the smaller osteochondral defect previously de scribed. The previously described osteochondral defect has slightly decreased in size. 3. No new significant findings in the lateral compartment. 4. Retropatellar cartilage findings are unchanged from the prior study. No new bone edema evident in the patella. No new findings in the quadriceps and patellar tendons. DATA REPOSITORY:
== END ==
PROVIDERS: PCP Nurse Practitioner Family; Visit Provider Orthopaedic Surgery
DX: S83.511D Sprain of anterior cruciate ligament of right knee, subsequent encounter (principal); Z98.890 Other specified postprocedural states; M25.561 Pain in right knee; M25.461 Effusion, right knee; M21.861 Other specified acquired deformities of right lower leg
CPT/HCPCS: 73721

== ENCOUNTER 2021-12-07 15:03 | Outpatient (CLI) | payer BC, SELFPAY ==
--- NOTE | 2021-12-07 14:30 | DI.RAD_ITS ---
Exam(s) XR KNEE RT 2V AP,LAT EXAM: XR KNEE RT 2V AP,LAT CLINICAL HISTORY: Right knee pain. TECHNIQUE: 2D digital imaging was performed. COMPARISON: MR MR LOWER JOINT RT WO from 11/28/2021 FINDINGS: Evidence of prior ACL repair. Minimal joint effusion. Increased lucency of the distal femur and pro ximal tibia and fibula could be secondary to disuse osteopenia. Slight the cleavage E in the medial femoral condyle consistent with an old osteochondral defect. IMPRESSION: Status post ACL repair. Patchy disuse osteopenia. DATA REPOSITORY: RADIATION DOSE DELIVERED:
== END 2021-12-07 15:04 | disposition home or self-care (01) ==
LOC: DIORS 15:03
PROVIDERS: PCP Nurse Practitioner Family; Referring Provider Nurse Practitioner Family; Visit Provider Student in an Organized Health Care Education/Training Program
DX: M25.561 Pain in right knee (principal); M25.461 Effusion, right knee; M85.88 Other specified disorders of bone density and structure, other site; Z98.890 Other specified postprocedural states
CPT/HCPCS: 73560

== ENCOUNTER 2022-07-18 12:37 | Outpatient (REF) | payer OTHER, SELFPAY ==
[2022-07-20 11:36] LABS: COVID-19 RT-PCR UVMMC Result Negative (Negative)
== END 2022-07-18 12:38 | disposition home or self-care (01) ==
LOC: LBN 12:37
PROVIDERS: PCP Nurse Practitioner Family; Visit Provider Family Medicine
DX: Z20.822 Contact with and (suspected) exposure to COVID-19 (principal)
CPT/HCPCS: U0003

== ENCOUNTER 2022-11-16 03:27 | Outpatient (CLI) | payer OTHER, SELFPAY ==
[2022-11-16 13:28] LABS: Calculated LDL 115 mg/dL (<100); Cholesterol 177 mg/dL (<200); HDL Cholesterol 55 mg/dL (40-60); Triglyceride 38 mg/dL (<150)
== END 2022-11-16 03:28 | disposition home or self-care (01) ==
PROVIDERS: PCP Nurse Practitioner Family; Visit Provider Nurse Practitioner Family
DX: Z13.1 Encounter for screening for diabetes mellitus (principal); Z13.220 Encounter for screening for lipoid disorders
CPT/HCPCS: 36415; 80061; 83036

== ENCOUNTER 2023-01-05 02:02 | Outpatient (CLI) | payer OTHER, SELFPAY ==
[2023-01-09 15:43] LABS: Testosterone, Total 476 ng/dL (240-950)
== END 2023-01-05 02:03 | disposition home or self-care (01) ==
LOC: LOS 02:03
PROVIDERS: PCP Nurse Practitioner Family; Visit Provider Nurse Practitioner Family
DX: R68.82 Decreased libido (principal)
CPT/HCPCS: 36415; 84403

== ENCOUNTER 2023-08-06 16:59 | Emergency (ER) | payer OTHER, SELFPAY ==
[2023-08-06 17:02] VITALS: BP 162/91; PULSE 104; RESP 16; TEMP 37.1; O2SAT 98
--- NOTE | 2023-08-06 17:20 | W.ED.GENAD ---
Discharge Plan Disposition Patient Disposition: Home Discharge Details Clinical Impression: Adverse effect of injectable substance Primary Care Provider: Julio César Bill ED Provider: Edmund Farrell Home Meds and New Rx's Prescriptions: No Action No Known Home Meds Discharge Instructions Additional Instructions: At this time there is no signs of infection, hematoma or other emergent abnormality at this time. It is highly likely that this is a injection site reaction and you may continue to apply warm compresses, use [id number] ibuprofen, and perform activities as tolerated by discomfort If you notice any significant worsening of symptoms which may include fever chills, significant increase of size of irritation, obvious bright redness or spreading rash you should be reevaluated Follow-up with your primary care provider as needed or if not fully improving over the next week Referrals: Julio César Bill, DECISION ANALYST [Primary Care Provider] - 1 week Discharge Data Discharge Date/Time-TO BE ENTERED AT DEPARTURE: 08/06/23 17:32 Medical Decision Making - Patient presenting to the emergency department for chief complaint of left buttock pain. Patient reports approximately 1 week ago he injected steroids for muscle gaining. 2 to 3 days later he started noticing pain and swelling to the area. Patient denies any fever chills and all other systemic symptoms. He did state that he had applied some ice and had small amount of frostbite due to that. Patient has no other significant past medical history. Patient has some general anxiety otherwise physical exam does show puncture wound to left buttock with small amount of surrounding ecchymosis. Bedside ultrasound was utilized and visualize tissue and no noted abscess was noted, area is not indurated and does not appear consistent with cellulitis or infection. I feel that patient is having a localized reaction to the injection. At this time I do not feel that patient requires antibiotics but should monitor site and return for new or worsening symptoms. Upon discussion of this patient does state that symptoms have somewhat improved in last 24 hours which I feel is reassuring. Given no other systemic symptoms I do not feel that further work-up is warranted or required at this time. After discussion of diagnosis and plan of care patient has no further needs, questions, or concerns and states clear understanding to return to the emergency department for any worsening symptoms. This documentation was generated using [employer] system, please disregard any oddities of phrase or misspellings. HPI General Mode of arrival: ambulatory. Date/Time Provider Initiated Documentation: 08/06/23 17:00. Limitations to Documentation: no limitations. Information obtained by: patient and RN notes reviewed. History of Present Illness 37 year old M presents to the emergency department with the chief complaint of Left buttock pain, described as moderate, Patient started experiencing this day(s) (5) and it has been constant. No relieving factors improve symptom(s), Patient notes no other symptoms.. Patient did receive the following treatments prior to arrival, NSAID Related Data Home Medications Medication Instructions Recorded Confirmed Unknown [No Known Home Meds] 08/06/23 08/06/23 Allergies Allergy/AdvReac Type Severity Reaction Status Date / Time No Known Allergies Allergy Verified 08/06/23 17:07 General Stated Complaint: RashLesion CLAUDIO: 4 Review of Systems Constitutional Constitutional: Denies chills and Denies fever(s) Gastrointestinal Gastrointestinal: Denies abdominal pain and Denies nausea Genitourinary Genitourinary: Denies oliguria and Denies difficulty urinating Musculoskeletal Musculoskeletal: Reports as per HPI Integumentary/Breasts Skin/Breast: Reports erythema PFSH All Active Problems (Updated 08/06/23 @ 17:23 by Edmund Farrell NP) Adverse effect of injectable substance (Acute) Injury of tibial nerve (Acute) Osteochondral defect of femoral condyle (Acute) Anxiety and depression (Acute) Right knee pain (Acute) Medical History (Updated 08/06/23 @ 17:23 by Edmund Farrell NP) Post-op pain No-show for appointment Chondromalacia, right knee Internal derangement of right knee (~07/2019) Surgical History Compartment syndrome of right lower extremity S/P fasciotomy: 03/25/2021 History of appendectomy Right ACL tear S/P reconstruction with quad tendon autograft: 02/13/2020 Family History Mother Diverticulitis Heart disease Father Essential hypertension Diabetes Brother No problems noted. Brother No problems noted. 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[employer] Pets and animals: Yes Pets and animals: dog(s) Sexually active: Yes Do you think of yourself as: straight/heterosexual Current gender identity: male What is your relationship status?: How often do you talk on the phone with friends or family?: three or more times per week How often do you attend spiritism or scientologist services?: 4 or more times per year Do you belong to any clubs or organized social groups?: no Panel score (0-1 are the most socially isolated patients): 3 Duration: > 90 minutes/day Frequency: 5-6 times per week [place]/Episcopalian: Jehovah'S Witness Special medina needs: No Do you feel safe at home: Yes Do you feel safe in your relationship?: Yes Exam Const General: cooperative, no acute distress and not ill appearing Orientation: alert, awake and oriented x3 HENMT Mouth: moist mucous membranes Resp Effort & Inspection: normal respiratory effort, able to speak in complete sentences and no respiratory distress Back/Spine/Pelvis Pelvis: buttock ecchymosis, buttock tenderness on the left and no buttock swelling Neuro General: patient alert, patient awake, patient oriented x3 and moves all extremities Course Vital Signs Vital signs: Vital Signs Temperature 37.1 C 08/06/23 17:02 Pulse 104 H 08/06/23 17:02 Respiratory Rate 16 08/06/23 17:02 Blood Pressure 162/91 H 08/06/23 17:02 Pulse Oximetry 98 08/06/23 17:02 Temperature 37.1 C 08/06/23 17:02 Temperature Source Temporal Artery Scan 08/06/23 17:02 Pulse 104 H 08/06/23 17:02 Respiratory Rate 16 08/06/23 17:02 Respiratory Effort Normal 08/06/23 17:06 Blood Pressure 162/91 H 08/06/23 17:02 Blood Pressure Position Sitting 08/06/23 17:02 Pulse Oximetry 98 08/06/23 17:02 Oxygen Delivery Method Room Air 08/06/23 17:02 Oxygen Flow Rate 0 08/06/23 17:02 Pain Level 3 08/06/23 17:02
== END 2023-08-06 17:32 | disposition home or self-care (01) ==
PROVIDERS: Emergency Provider Nurse Practitioner Family; PCP Nurse Practitioner Family
DX: T38.7X1A Poisoning by androgens and anabolic congeners, accidental (unintentional), initial encounter (principal)
CPT/HCPCS: 99282

== ENCOUNTER 2023-10-02 16:59 | Emergency (ER) | payer OTHER, SELFPAY ==
[2023-10-02 17:02] VITALS: BP 168/84; PULSE 92; RESP 18; TEMP 36.6; O2SAT 97
--- NOTE | 2023-10-02 17:03 | W.ED.GENAD ---
Discharge Plan Disposition Patient Disposition: Home Discharge Details Primary Care Provider: Julio César Bill ED Provider: Kip Shah Home Meds and New Rx's Prescriptions: No Action No Known Home Meds Discharge Instructions Additional Instructions: You were seen in the emergency department for your laceration which was closed with 3 harjit. Please return to the emergency department as we discussed if you develop foul-smelling drainage fever or any streaking signs of infection. Your harjit will need to be removed in 7 to 10 days. Please follow-up with your primary care provider go to the urgent care clinic or return to the emergency department have your harjit removed. For your pain please take medications as follows: 1. Take acetaminophen (Tylenol), 1,000 mg (two 500 mg tabs) every 6 hours 2. Take ibuprofen (Advil), 400 mg every 6 hours. Discharge Data Discharge Date/Time-TO BE ENTERED AT DEPARTURE: 10/02/23 19:24 HPI General Date/Time Provider Initiated Documentation: 10/02/23 17:03. HPI Narrative: MDM Primary survey intact. Reassuring shock index. On secondary survey patient has an approximately 1.5 cm oozing laceration to his scalp. Given head strike with weight will obtain CT head. Given report of neck pain will also obtain CT cervical spine. No thoracic or abdominal, so will defer FAST exam. No preceding nausea nor vomiting and no syncope so will defer syncope evaluation. I have updated the patient's tetanus status. He is not on an anticoagulant to suggest need for reversal. 6:30 PM Patient declined ibuprofen. I have closed his laceration with 3 harjit. Please see separate procedure note. Chronic conditions affecting the care of the patient: N/A History obtained from an outside historian: N/A External record review: N/A Medications: Acetaminophen Social determinants of health affecting disposition: N/A Management discussed with: Dr. Quiroz radiology Treatment/interventions considered: N/A Response to therapies provided: N/A HPI This is a previously healthy 37-year-old male arrived to the emergency department via private vehicle with his in the setting of a laceration he sustained to his head just prior to arrival. Patient reports that he was lifting weights. He had an approximately 45 pound barbell approximately 4 feet above his head. He inadvertently hit the barbell which fell onto his head. The barbell glanced his head as it struck him. He does not feel that all 45 pounds of the weight hit his head. He did not lose consciousness but he did notice a laceration to his head. He is not anticoagulated. No syncope. He subsequently developed some pain in his neck which feels stiff. No preceding nausea vomiting dizziness. 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 Patient has been ambulatory since his injury. Exam General: Well-appearing in no acute distress speaking in complete sentences. Head: Normocephalic. There is an approximately 1.5 cm laceration to the right frontal scalp with minor venous oozing. Eye: Extraocular eye movements intact. No conjunctival injection. No scleral icterus. Ear, nose, mouth, throat: Grossly normal inspection. Normal voice, handling secretions normally. Neck: Trachea midline. No midline cervical spinal tenderness. Cardiovascular: Well-perfused distal extremities. Regular rate and rhythm. Respiratory: Nonlabored respiration. Clear lungs bilaterally. Gastrointestinal: Nondistended abdomen. Musculoskeletal: No edema. Moving all 4 extremities spontaneously. No tenderness to bilateral upper and lower extremities. Skin: Normal for age and race, grossly normal temperature and turgor. No acute rash. Neurologic: Alert and appropriate, no apparent acute deficits. GCS 15. Psychiatric: Mood and manner are appropriate. Grooming and personal hygiene are appropriate. Related Data Home Medications Medication Instructions Recorded Confirmed Unknown [No Known Home Meds] 08/06/23 10/02/23 Allergies Allergy/AdvReac Type Severity Reaction Status Date / Time No Known Allergies Allergy Verified 10/02/23 17:06 General CLAUDIO: 4 PFSH All Active Problems (Updated 09/06/23 @ 00:02 by HENRRY SAWANT) Injury of tibial nerve (Acute) Osteochondral defect of femoral condyle (Acute) Anxiety and depression (Acute) Right knee pain (Acute) Medical History (Updated 09/06/23 @ 00:02 by HENRRY SAWANT) Post-op pain No-show for appointment Chondromalacia, right knee Internal derangement of right knee (~07/2019) Surgical History Compartment syndrome of right lower extremity S/P fasciotomy: 03/25/2021 History of appendectomy Right ACL tear S/P reconstruction with quad tendon autograft: 02/13/2020 Family History Mother Diverticulitis Heart disease Father Essential hypertension Diabetes Brother No problems noted. Brother No problems noted. Grandfather Diabetes Personal history of malignant neoplasm Prostate Grandmother Personal history of malignant neoplasm Lung Grandmother Essential hypertension Diabetes Hyperlipidemia Social History (Updated 08/13/23 @ 12:32 by Cristy Lopez) Smoking/Tobacco Use Status: Never Second Hand Exposure: Yes Smoking risk assessment performed?: Yes Alcohol Intake: current Alcohol Intake frequency: holidays/special occasions only Alcohol type: hard liquor Drug use: Occasionally Substance use type: marijuana Household members: spouse and children Housing: house Number of Children: 2 Communication Needs: None 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 [employer] Pets and animals: Yes Pets and animals: dog(s) Sexually active: Yes Do you think of yourself as: straight/heterosexual Current gender identity: male What is your relationship status?: How often do you talk on the phone with friends or family?: three or more times per week How often do you attend anabaptist or synagogue services?: 4 or more times per year Do you belong to any clubs or organized social groups?: no Panel score (0-1 are the most socially isolated patients): 3 Duration: > 90 minutes/day Frequency: 5-6 times per week [place]/Methodist: Nondenominational Special medina needs: No Do you feel safe at home: Yes Do you feel safe in your relationship?: Yes Procedures Laceration Laceration 1: Site: scalp Side (If applicable): right Size (cm): 1.5 Description: linear Depth: simple, single layer Pre-repair: irrigated extensively (Irrigated by emergency department soils technician Lucía) Skin layer closed with: other ( 3 harjit)
[2023-10-02] MEDS: Acetaminophen 500 MG TAB 1000 MG PO (17:46)
--- NOTE | 2023-10-02 17:50 | DI.CT_ITS ---
Exam(s) CT HEAD CERVICAL SPINE WO EXAM: CT HEAD CERVICAL SPINE WO CLINICAL HISTORY: Head strike neck pain. TECHNIQUE: Imaging Protocol: Axial computed tomography images with coronal and sagittal reformatted images were created and reviewed COMPARISON: No exams were available for comparison FINDINGS: CT Head: Ventricles and Extra axial spaces: Normal in size and morphology for the patient's age. Hemorrhage: None. Cerebral parenchyma: There is a focus of hyperdensity posterior to the frontal horns of the lateral v entricle on the axial image (series 3, image 22). It appears to be a vascular in nature as seen on th e sagittal and coronal images (series 9, image 48 and series 8, images 47-52). No intracranial hemorr umer is seen. The cerebral parenchyma has a normal appearance. Midline shift: None. Brainstem/Cerebellum: Normal. Calvarium: Normal. Visualized Paranasal sinuses/Mastoids: Clear. Soft Tissues: Unremarkable. CT Cervical Spine: Bones: No acute fracture or subluxation. There is reversal of the normal cervical lordosis. Soft Tissues: Unremarkable. Lung Apices: Clear. IMPRESSION: 1. No acute intracranial process. 2. No acute fracture or subluxation in the cervical spine. 3. Findings were discussed with the emergency department at 6:25 p.m. on 10/02/2023. RADIATION DOSE DELIVERED: Total DLP DATA REPOSITORY: All CT scans at this facility are submitted to the National Radiology Data Registry (NRDR) Dose Index Registry (DIR) with the [employer] (ACR). RADIATION OPTIMIZATION: All CT scans at this facility use at least one of these dose optimization te chniques: automated exposure control; mA and/or kV adjustment per patient size (includes targeted exa ms where dose is matched to clinical indication); or iterative reconstruction.
[2023-10-02 19:20] VITALS: BP 168/84; PULSE 92; RESP 18; TEMP 36.6; O2SAT 97
== END 2023-10-02 19:24 | disposition home or self-care (01) ==
PROVIDERS: Emergency Provider Emergency Medicine; PCP Nurse Practitioner Family
DX: S01.01XA Laceration without foreign body of scalp, initial encounter (principal); M54.2 Cervicalgia; Z23 Encounter for immunization; W22.8XXA Striking against or struck by other objects, initial encounter; Y93.B3 Activity, free weights; Y92.019 Unspecified place in single-family (private) house as the place of occurrence of the external cause
CPT/HCPCS: 12001; 90471; 99284; 70450; 72125; 99283

== ENCOUNTER 2023-11-05 22:19 | Outpatient (REF) | payer BC, SELFPAY | END 2023-11-05 22:20 | disposition home or self-care (01) | LOC: LBN 22:19 | PROVIDERS: PCP Nurse Practitioner Family; Visit Provider Nurse Practitioner Family | DX: J02.9 Acute pharyngitis, unspecified (principal) | CPT/HCPCS: 87070 ==

== ENCOUNTER 2024-11-07 01:46 | Outpatient (CLI) | payer BC, SELFPAY ==
[2024-11-07 11:15] LABS: HCT 48.9 % (40.0-50.0); HGB 16.6 g/dL (13.5-17.5); MCH 30.9 pg (27.0-33.0); MCHC 33.9 % (32.0-36.0); MCV 91 fL (80-95); MPV 8.7 fL (8.0-11.0); Platelet Count 193 10^3/uL (130-400); RBC 5.38 10^6/uL (4.36-5.78); RDW 12.1 % (11.8-14.1); RDW-SD 40.3 fL; WBC 6.51 10^3/uL (4.4-10.8)
[2024-11-07 11:39] LABS: Hemoglobin A1C 5.3 % (<5.7)
[2024-11-07 12:04] LABS: Calculated LDL 120 mg/dL (<100); Cholesterol 192 mg/dL (<200); HDL Cholesterol 63 mg/dL (40-60); Triglyceride 48 mg/dL (<150)
[2024-11-15 16:53] LABS: Testosterone, Free 12.1 ng/dL (4.46-17.1); Testosterone, Total 458 ng/dL (240-950)
== END 2024-11-07 01:47 | disposition home or self-care (01) ==
LOC: LBO 01:46
PROVIDERS: PCP Nurse Practitioner Family; Visit Provider Nurse Practitioner Family
DX: Z13.220 Encounter for screening for lipoid disorders (principal); R53.83 Other fatigue; Z13.1 Encounter for screening for diabetes mellitus
CPT/HCPCS: 36415; 80061; 84402; 84403; 85027; 83036

== ENCOUNTER 2025-01-19 17:59 | Emergency (ER) | payer SELFPAY ==
[2025-01-19 18:02] VITALS: BP 150/81; PULSE 74; RESP 12; TEMP 36.7; O2SAT 95
[2025-01-19 18:08] VITALS: BP 150/81; PULSE 74; RESP 12; TEMP 36.7; O2SAT 95
--- NOTE | 2025-01-19 18:23 | W.ED.GENAD ---
Discharge Plan Disposition Patient Disposition: Home Condition: Stable Discharge Details Clinical Impression: Pharyngitis Primary Care Provider: Julio César Bill ED Provider: Annie Villatoro Home Meds and New Rx's Prescriptions: No Action methylprednisolone [Medrol (Keron)] 4 mg tablets,dose pack See Rx Instructions PO PER PKG DIR Qty: 21 0RF Rx Instructions: PO PER PKG DIR for 6 days sertraline 50 mg tablet 50 mg PO DAILY Qty: 90 3RF Discharge Instructions Instructions: Sore Throat, Adult ED Additional Instructions: You were seen in the emergency department today for evaluation of a sore throat. In our department you do full physical examination performed and had a strep test that was negative. This will be sent for culture and you will be contacted with positive results. No news is good news, and likely you are experiencing a viral sore throat. You received a dose of Decadron which should improve your symptoms for the next 24 hours or so, though it is typical for sore throat to recover after this time. Please continue to use Tylenol and ibuprofen as well as cough drops, and please follow-up with your primary care provider in the next few days to discuss this visit and any symptoms that change, worsen, or persist. Thank you for allowing us to be part of your care. HPI General Mode of arrival: ambulatory. Date/Time Provider Initiated Documentation: 01/19/25 18:09. Limitations to Documentation: no limitations. Information obtained by: patient and old records reviewed. HPI Narrative: HPI: This is a 39-year-old male patient without significant past medical history is presenting for evaluation of sore throat. The patient reports that he has had 2 weeks of sore throat, states that a week ago he had a fever but this has improved and he has been 1 week fever free. 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 He is status post tonsillectomy, and does not report any associated symptoms. He states that his sore throat is worse in the morning, and it hurts to talk, improves over the course of the day. He does have a history of snoring that has been worse over the last 2 weeks. Is able to eat and drink and maintain hydration. Exam: Gen: Awake and alert, in no apparent distress HEENT: Non-icteric sclera, PERRL, posterior pharynx with erythema, no exudates, no peritonsillar swelling/abscess findings. Neck: Supple, full range of motion without meningismus, mild bilateral tender lymphadenopathy anterior cervical chain Lungs: No apparent respiratory distress, normal respiratory effort. CV: Appears well perfused Abdomen: Non-distended MSK: Moves 4 extremities without apparent limitation in ROM Skin: Visualized skin without rashes, cyanosis. Neuro: Normal Gait, no obvious focal deficits or facial asymmetry. Speaks in full, clear sentences. Psych: Appropriate for situation. MDM: This is a 39-year-old male patient presenting for evaluation of 2 weeks of sore throat. Differential includes but is not limited to strep pharyngitis, viral pharyngitis, considered URI though the patient does not have any associated symptoms. 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 Patient is otherwise hemodynamically appropriate, tolerating oral intake and maintaining hydration and I have a low concern for severe systemic illness. ED Course: A rapid strep test was negative, this was sent for culture for confirmatory testing. I provided the patient with a dose of Decadron for symptomatic management and recommended follow-up in the outpatient environment for reassessment if symptoms persist, as well as supportive care. At this time, the patient has had a full medical evaluation and is safe for discharge to home. They are hemodynamically stable, ambulatory, and tolerating PO. They are understanding of the follow-up plan and return precautions. They left our facility without incident. Annie Villatoro MD Related Data Home Medications ?Medication ?Instructions ?Recorded ?Confirmed sertraline 50 mg tablet 50 mg PO DAILY #90 tabs 09/25/24 01/19/25 methylprednisolone 4 mg tablets in See Rx Instructions PO PER PKG DIR 12/04/24 01/19/25 a dose pack (Medrol (Keron)) #21 dose pk Previous Rx's ?Medication ?Instructions ?Recorded sertraline 50 mg tablet 50 mg PO DAILY #90 tabs 09/25/24 methylprednisolone 4 mg tablets in See Rx Instructions PO PER PKG DIR 12/04/24 a dose pack (Medrol (Keron)) #21 dose pk Allergies Allergy/AdvReac Type Severity Reaction Status Date / Time No Known Allergies Allergy Verified 01/19/25 18:09 General Stated Complaint: Sorethroat CLAUDIO: 4 Course Vital Signs Vital signs: Vital Signs Temperature 36.7 C 01/19/25 18:02 Pulse 74 01/19/25 18:02 Respiratory Rate 12 01/19/25 18:02 Blood Pressure 150/81 H 01/19/25 18:02 Pulse Oximetry 95 01/19/25 18:02 Temperature 36.7 C 01/19/25 18:08 Temperature Source Oral 01/19/25 18:08 Pulse 74 01/19/25 18:08 Respiratory Rate 12 01/19/25 18:08 Blood Pressure 150/81 H 01/19/25 18:08 Blood Pressure Position Sitting 01/19/25 18:08 Pulse Oximetry 95 01/19/25 18:08 Oxygen Delivery Method Room Air 01/19/25 18:08 Pain Level 1 01/19/25 18:02 Lab/Test Results Lab/Test Results: 01/19/25 18:16 Tonsil - Not Specified Group A Streptococcus Culture - Pending POC Strep Test-MARIO(Rapid) Start: 01/19/25 18:08 Freq: .Rapid Strep Test Status: Active Protocol: Document 01/19/25 18:16 KYLE (Rec: 01/19/25 18:16 KYLE [id number]) Strep test-MARIO(Rapid)-POC POC-Strep test-MARIO (Rapid) Negative POC-Strep test-MARIO (Rapid) Negative Medical Decision Making Quality:SDOH Health Related Social Needs: Health related social needs details none PFSH All Active Problems (Updated 01/19/25 @ 18:25 by Annie Villatoro MD) Pharyngitis (Acute) Allergies (Acute) Injury of tibial nerve (Acute) Osteochondral defect of femoral condyle (Acute) Anxiety and depression (Acute) Right knee pain (Acute) Medical History (Updated 01/19/25 @ 18:25 by Annie Villatoro MD) Left varicocele Repaired in 2023 Post-op pain No-show for appointment Chondromalacia, right knee Internal derangement of right knee (~07/2019) Surgical History Compartment syndrome of right lower extremity S/P fasciotomy: 03/25/2021 History of appendectomy Right ACL tear S/P reconstruction with quad tendon autograft: 02/13/2020 Family History Mother Diverticulitis Heart disease Father Essential hypertension Diabetes Brother No problems noted. Brother No problems noted. 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[employer] Pets and animals: Yes Pets and animals: dog(s) Sexually active: Yes Do you think of yourself as: straight/heterosexual Current gender identity: male What is your relationship status?: How often do you talk on the phone with friends or family?: three or more times per week How often do you attend samaritan or restorationism services?: 4 or more times per year Do you belong to any clubs or organized social groups?: no Panel score (0-1 are the most socially isolated patients): 3 Duration: > 90 minutes/day Frequency: 5-6 times per week [place]/Pentecostalism: Nondenominational Special medina needs: No Do you feel safe at home: Yes Do you feel safe in your relationship?: Yes
[2025-01-19] MEDS: Dexamethasone 4 MG TAB 10 MG PO (18:31)
== END 2025-01-19 18:35 | disposition home or self-care (01) ==
LOC: ER 18:50
PROVIDERS: Emergency Provider Emergency Medicine; PCP Nurse Practitioner Family
DX: J02.9 Acute pharyngitis, unspecified (principal)
CPT/HCPCS: 87880; 99282; 87081; 99283; J8540